=== PATIENT | female | born 1955 | race African-American/Black ===

== ENCOUNTER 2017-03-30 19:29 | Observation (INO) | payer BC, OTHER, SELFPAY ==
[~2017-03-30 19:29] MED LIST: ISOVUE-370 76%-LOCM 1 ML ONE
[2017-03-30 20:47] LABS: #Basophils 0.1 thou/uL (0.0-0.2); #Eosinphils 0.2 thou/uL (0.0-0.7); #Lymphocytes 2.1 thou/uL (1.20-3.40); #Monocytes 0.4 thou/uL (0.11-0.59); #Neutrophils 2.8 thou/uL (1.40-6.50); %Basophils 1.2 % (0.0-1.0); %Eosinophils 2.9 % (0.0-10.0); %Lymphocytes 37.4 % (21.0-51.0); %Monocytes 7.3 % (0.0-10.0); Hematocrit 44.5 % (36.0-47.0); Mean Platelet Volume 7.3 fL (7.4-10.4); Red Blood Cell (RBC) Count 4.86 mill/uL (4.20-5.40); White Blood Cell (WBC) Count 5.5 thou/uL (4.8-10.8)
--- NOTE | 2017-03-30 20:52 | RAD ---
PORTABLE CHEST: 03/30/17 HISTORY: Chest pain. Heart size is within normal limits for portable technique. There are atherosclerotic changes of the aorta. The lungs are clear. of infiltrative process. Some linear changes in the bases is consistent with atelectasis or scar. IMPRESSION: Minimal linear atelectasis or scar in the lung bases. POS: [facility]
[2017-03-30 21:10] LABS: ALT (SGPT) 16 U/L (8-55); AST (SGOT) 15 U/L (5-34); Alkaline Phosphatase 81 U/L (40-150); Anion Gap 11 mmol/L (10-20); BUN (Urea Nitrogen) 17 mg/dL (9.8-20.1); Bilirubin, Total 0.2 mg/dL (0.2-1.2); CK (CPK) 127 U/L (29-168); Calc. Creatinine Clearance 0 mL/min (70-130); Calcium 9.6 mg/dL (7.8-10.44); Carbon Dioxide 29 mmol/L (23-31); Chloride 104 mmol/L (98-107); Estimated GFR-MDRD Greater than 90; Globulin 3.1 g/dL (2.4-3.5); Lipase 20 U/L (8-78)
[2017-03-30 21:12] LABS: Troponin I Less than 0.010 ng/mL (< 0.028)
--- NOTE | 2017-03-30 21:49 | CT ---
CT ANGIO OF CHEST AND ABDOMEN PERFORMED WITH INTRAVENOUS CONTRAST ENHANCEMENT WITH 3D RECONSTRUCTION S: 03/30/17 HISTORY: Back and chest pain. This was done per the aortic dissection protocol. Lungs show emphysematous change. subsegmental atelectatic changes are seen in the lung bases. No ple ural effusions. No significant hilar lymphadenopathy. There is a slight enlarged prevascular node measuring 9 to 10 mm in short axis dimension. May be reactive. There is fairly good pulmonary artery opacification. I see no signs for pulmonary embolus. The thoracic aorta is normal in caliber. No dissection. CT ANGIO OF ABDOMEN PERFORMED WITH CONTRAST: The liver, spleen, pancreas, and gallbladder regions appear unremarkable on this angiographic phase exam. Right and left adrenal glands and right and left kidneys are normal in appearance. No significant pe riaortic or mesenteric adenopathy. The thoracic aorta is normal in caliber. Superior mesenteric and celiac arteries as well as inferior mesenteric arteries are normal in appearance. Single renal arter ies are noted. IMPRESSION: No evidence of aortic aneurysm or dissection. POS: [facility]
[2017-03-30] MEDS ORDERED: Ketorolac Tromethamine 30 MG/ML VIAL ONE (23:27)
[2017-03-30 23:59] LABS: Troponin I Less than 0.010 ng/mL (< 0.028)
[2017-03-31 00:19] VITALS: BMI 27.3
[2017-03-31 03:02] LABS: Troponin I Less than 0.010 ng/mL (< 0.028)
[2017-03-31] MEDS ORDERED: ADENOSINE 60 MG/20 ML VIAL ONE ×2 (03:29→15:12)
[2017-03-31] MEDS ORDERED: Acetaminophen 325 MG TAB PO PRN (06:35)
[2017-03-31] MEDS ORDERED: FLU VACC QS2017-18 36 mo. & older 0.5 ML SYRINGE IM ONE (09:00)
[2017-03-31] MEDS ORDERED: Amlodipine 10 MG TAB PO SCH (09:00)
[2017-03-31] MEDS ORDERED: Hydrochlorothiazide 25 MG TAB PO SCH (09:00)
[2017-03-31] MEDS ORDERED: Aspirin 325 MG TAB PO SCH (09:00)
[2017-03-31] MEDS ORDERED: ALPRAZolam 1 MG TAB PO SCH (09:00)
--- NOTE | 2017-03-31 13:31 | CON ---
DATE OF CONSULTATION: 03/31/2017 CARDIOLOGY CONSULTATION REASON FOR CONSULTATION: Chest pain. HISTORY OF PRESENT ILLNESS: Ms. Nicole is a 61-year-old -[place] female, who comes to the hospital for chest pain. She woke up and when she stood up a right-sided shoulder pain hit her. It radiated to the right scapula and to the right breast. She felt the pain would go to the left side every now and then she decided to come in for evaluation. She was admitted for rule out and has eddy d 3 negative troponins, continues to have pain mostly when she moves her right arm and it goes down to her right breast and right scapula. PAST MEDICAL HISTORY: 1. Hypertension. 2. Irritable bowel syndrome. 3. Anxiety, depression. PAST SURGICAL HISTORY: 1. Benign tumor removed from the breast. 2. Back surgery. SOCIAL HISTORY: She smokes half pack a day, drinks social. No drug use. OUTPATIENT MEDICATIONS: Include: 1. Xanax p.r.n. 2. Hydrochlorothiazide 12.5 mg a day. 3. Amlodipine 10 mg a day. ALLERGIES: HYDROCORTISONE. FAMILY HISTORY: Noncontributory. REVIEW OF SYSTEMS: A 12-point review of systems was done and is all negative unless stated in the h istory of present illness. PHYSICAL EXAMINATION: VITAL SIGNS: Temperature 97.8, pulse 78, respiratory rate 16, satting 98% on room air, blood pressu re 123/74. GENERAL: Awake, alert, oriented x3, in no distress. HEENT: Normocephalic, atraumatic. NECK: Supple. LUNGS: Clear. CARDIOVASCULAR: S1, S2, no S3 or S4, no murmurs or rubs. ABDOMEN: Soft, nondistended. EXTREMITIES: No edema. SKIN: Warm and dry. MUSCULOSKELETAL: She has significant pain in her right shoulder when moving it around, she may have rotator cuff tear. LABORATORY WORK: Shows negative troponins x3, unremarkable CBC and unremarkable metabolic profile. IMAGING: EKG shows sinus rhythm, no ischemic changes. Telemetry has shown some episodes of Mobitz type 1 AV block, at times it seems to be 2:1, but most likely it is Mobitz type 1 as the MT interval before the skip beat is longer than the MT interval after the skip beat. This also happened in the middle of night while she was sleeping and is completely asymptomatic. ASSESSMENT AND PLAN: 1. Second degree atrioventricular block, Mobitz type 1 and a few episodes of Mobitz type 2, which a re mostly Mobitz type 1 as well, this all during sleep and asymptomatic. She is in sinus rhythm dur ing the daytime and her complaint is not syncope. I do not think there is any indication for pacing at this time. 2. Chest pain: Most likely related to right shoulder pain. Because she did feel like there was a fullness in the mid sternal area before it all started on the shoulder, we will get an echocardiogra m and stress test to risk stratify her. 3. Hypertension: We will control. Thank you for letting us participate in the care of your patient. We will follow.
[2017-03-31 16:22] VITALS: BP 145/85; TEMP 98.5
--- NOTE | 2017-03-31 16:37 | NM ---
MYOCARDIAL PERFUSION SCAN WITH SPECT IMAGING: History: Chest pain. Examination was performed using 29.4 mCi Technetium 99M Sestamibi on the stress and resting images. FINDINGS: This shows a normal distribution of radiopharmaceutical without signs of ischemic or scar. Wall Motion: There is symmetric contractility. Left Ventricular Ejection Fraction: The LVEF is 72%. IMPRESSION: Unremarkable myocardial perfusion scan. POS: [facility]
--- NOTE | 2017-03-31 23:04 | HP ---
DATE OF ADMISSION: 03/31/2017 REASON FOR ADMISSION/CHIEF COMPLAINT: Chest pain. HISTORY OF PRESENT ILLNESS: Ms. Nicole is a 61-year-old female with a past medical history of hypertension, anxiety disorder, came with complaining of chest pain that started yesterday morning. Patient stated the pain was in the retrosternal area, sometimes radiates to the left shoulder and right shoulder associated with some shortness of breath, but no diaphoresis, no nausea or vomiting, no dizziness. Later on, the patient states the pain went to the back and to the right shoulder more and basically it hurts all over the chest. The patient came to the emergency room where she was evaluated and found to have normal EKG and cardiac enzymes. She is admitted to rule out myocardial infarction. PAST MEDICAL HISTORY: 1. Hypertension. 2. Anxiety disorder. PAST SURGICAL HISTORY: Nothing significant. CURRENT MEDICATIONS: The patient is on amlodipine 10 mg daily, hydrochlorothiazide 12.5 daily, and Xanax 1 mg b.i.d. FAMILY HISTORY: Nothing of interest. SOCIAL HISTORY: The patient lives with family. No history of smoking. No history of alcohol. REVIEW OF SYSTEMS: Unremarkable except for the chest tightness. PHYSICAL EXAMINATION: GENERAL: The patient is alert, awake, and oriented x3. VITAL SIGNS: Temperature 98, pulse 83, respirations 20, blood pressure 140/90. HEENT: Head is normocephalic, atraumatic. Pupils are equal and reactive. Nasopharynx is pale and dry. Hard and soft palate, no lesions seen. SKIN: Skin turgor decreased. NECK: Supple. No JVD. LUNGS: Bilateral air entry with no rales, no rhonchi. CARDIAC: S1, S2 regular. Chest wall, not tender. ABDOMEN: Soft, no distention, no tenderness. Normal bowel sounds. RECTAL: Deferred. CENTRAL NERVOUS SYSTEM: No focal deficits. LABORATORY AND X-RAY FINDINGS: CBC shows WBC of 5.5, hemoglobin 14, hematocrit 44, platelets 198. Metabolic panel: Sodium 140, potassium 3.9, chloride 104, CO2 24, urea nitrogen 17, creatinine 0.7, glucose 101. Chest x-ray negative. CT dissection negative. EKG shows normal sinus with no acute ST-T changes seen. ASSESSMENT: 1. Chest tightness, rule out myocardial infarction. 2. Hypertension. 3. Anxiety disorder. 4. Right shoulder pain. PLAN: 1. Vital signs q. 4 hours. 2. Activity: As tolerated. 3. Allergies: NKDA. 4. Diet: Cardiac. 5. Continue home medication. 6. CK-MB and troponin I q. 8 hours x2. 7. Cardiology consult. 8. Toradol p.r.n. MTDD
--- NOTE | 2017-04-01 14:02 | DIS ---
DATE OF ADMISSION: 03/31/2017 DATE OF DISCHARGE: 03/31/2017 ADMITTING DIAGNOSES: 1. Chest tightness, rule out myocardial infarction. 2. Hypertension. 3. Anxiety disorder. 4. Right shoulder pain. FINAL DIAGNOSES: 1. Chest tightness. No evidence of acute myocardial infarction. 2. Hypertension. 3. Anxiety disorder. BRIEF SUMMARY OF HOSPITAL COURSE: Ms. Nicole is a 61-year-old -[place] female with past me dical history of hypertension who came with chest pain and tightness. In view of risk factors, the patient was admitted to rule out myocardial infarction. The patient, after admission, she was found to have second degree AV block, Mobitz type 1. A cardiology consult was done. The patient was see n by Dr. Mayo. He felt the patient has Mobitz type 1 secondary to AV block and patient is asympto matic. So he suggested no pacing at this time. He suggested a stress test in view of her chest blanca n. Stress test was done and it was negative for ischemia. The patient had some shoulder pain, but otherwise chest pain resolved. In view of improvement, the patient was discharged. At the time of discharge, she was stable. Her vital signs were stable. Lungs clear. Heart sound r egular. Abdomen: Soft, nontender. Bowel sounds present. DISCHARGE MEDICATIONS: Include amlodipine 10 mg daily, hydrochlorothiazide 12.5 mg daily, Xanax 1 m g b.i.d. FOLLOWUP: The patient will come for followup in 2 weeks.
== END 2017-03-31 17:18 | disposition home or self-care (01) ==
LOC: ERS 19:29 → 2SW 03-31 00:01
PROVIDERS: ADMIT Internal Medicine; ATTEND Internal Medicine
DX: R07.89 Other chest pain (principal); I10 Essential (primary) hypertension; F41.9 Anxiety disorder, unspecified; M25.511 Pain in right shoulder; K58.9 Irritable bowel syndrome, unspecified; F17.210 Nicotine dependence, cigarettes, uncomplicated; Z88.5 Allergy status to narcotic agent; Z88.6 Allergy status to analgesic agent; Z79.899 Other long term (current) drug therapy; Z98.890 Other specified postprocedural states
CPT/HCPCS: 36415; 71010; 71275; 78452; 80053; 82553; 83690; 84484; 85025; 90471; 90682; 90732; 93005; 93017; 96374; A4216; A9500; G0008; G0009; G0378; J0153; J1885; Q2036

== ENCOUNTER 2018-03-07 20:05 | Observation (INO) | payer BC, OTHER, SELFPAY ==
[2018-03-07] MEDS ORDERED: Acetaminophen 500 MG TAB ONE (21:06)
[2018-03-07] MEDS ORDERED: Ketorolac Tromethamine 30 MG/ML VIAL ONE (21:07)
[2018-03-07 21:20] LABS: #Basophils 0.1 thou/uL (0.0-0.2); #Eosinphils 0.1 thou/uL (0.0-0.7); #Lymphocytes 2.5 thou/uL (1.20-3.40); #Monocytes 0.4 thou/uL (0.11-0.59); #Neutrophils 4.2 thou/uL (1.40-6.50); %Basophils 1.6 % (0.0-1.0); %Eosinophils 1.9 % (0.0-10.0); %Lymphocytes 34.7 % (21.0-51.0); %Monocytes 4.8 % (0.0-10.0); %Neutrophils 57.1 % (42.0-75.0); Mean Corpuscular HGB CONC 31.9 g/dL (32.0-36.0); Mean Corpuscular Volume 90.8 fL (78.0-98.0); Mean Platelet Volume 7.9 fL (7.4-10.4); Platelet Count 202 thou/uL (130-400); Red Blood Cell (RBC) Count 4.83 mill/uL (4.20-5.40); White Blood Cell (WBC) Count 7.3 thou/uL (4.8-10.8)
[2018-03-07 21:42] LABS: Acetaminophen Less than 6.0 mcg/mL (10.0-30.0); Alcohol 183 mg/dL (Less than 10); Anion Gap 14 mmol/L (10-20); BUN (Urea Nitrogen) 15 mg/dL (9.8-20.1); Calc. Creatinine Clearance 0 mL/min (70-130); Calcium 9.4 mg/dL (7.8-10.44); Carbon Dioxide 23 mmol/L (23-31); Chloride 98 mmol/L (98-107); Estimated GFR-MDRD 81; Glucose 108 mg/dL (80-115); Potassium 3.3 mmol/L (3.5-5.1); Salicylate Less than 8.0 mg/dL (15.0-30.0); Sodium 132 mmol/L (136-145)
[2018-03-07 21:49] LABS: Amphetamine Not Detected (NotDetected); Barbiturates Screen Not Detected (NotDetected); Benzodiazepine Screen Detected (NotDetected); Cocaine Metabolite Screen Not Detected (NotDetected); Medtox Control Line Valid? VALID (VALID); Medtox Reader # READER 1; Methadone Not Detected (NotDetected); Methamphetamine Not Detected (NotDetected); Opiate Screen Not Detected (NotDetected); Oxycodone Screen Not Detected (NotDetected); Phencyclidine (PCP) Not Detected (NotDetected); THC/Cannabinoid Screen Not Detected (NotDetected); Tricyclic Screen Not Detected (NotDetected)
--- NOTE | 2018-03-07 22:56 | CT ---
CT BRAIN NONCONTRAST: 03/07/18 HISTORY: 62-year-old female status post acute head trauma from fall. FINDINGS: There is no midline shift or any other mass effect. There is no evidence of acute intracranial hemor rhage, large cortical infarct, obstructive hydrocephalus, or extraaxial fluid collection. The calvar ium is intact. There is a frontal scalp hematoma centered to the right of midline. There are small bu bbles of gas within the upper portion of it indicating laceration. IMPRESSION: 1. No acute intracranial findings. 2. Acute, traumatic, frontal scalp hematoma and laceration. jn [] POS: [facility]
--- NOTE | 2018-03-07 23:14 | CT ---
CT CERVICAL SPINE NONCONTRAST: 03/07/18 at 10:39 p.m. HISTORY: 62-year-old female with acute traumatic cervicalgia from fall. FINDINGS: Vertebral body heights are maintained. There are no jumped or perched facets. No fracture is identifi ed from the craniocervical junction to the T3-4 level of the upper thoracic spine. There is fat stran ding and fluid density anterior to the upper thoracic spine, between the vertebral bodies are the eso phagus, and to the right and left of them. There is adjacent edema. The origin of this is uncertain. There is a different, thin layer of fluid in the retropharyngeal space anterior to the cervical spine , from approximately the C2-3 level to the C5 level. The etiology of this is probably calcific tendin itis of the longus colli muscle, evidenced by the presence of a small calcific density directly infer ior to the junction between the odontoid process and the anterior arch of C1. There is high grade degenerative disc disease at C5-6 and C6-7. There is high grade degenerative face t disease at multiple levels bilaterally. IMPRESSION: 1. No fracture identified. 2. Fluid, which may represent hemorrhage and/or edema, in the retroesophageal space anterior to the upper thoracic spine, of unknown etiology. In the setting of trauma, one possibility is tear of t he anterior longitudinal ligament in that location, but this is uncertain. 3. Fluid in the retropharyngeal space anterior to the cervical spine is due to calcific tendinit is of the longus colli muscle. 4. Cervical spondylosis. NUNO Small POS: [facility]
[2018-03-08] MEDS ORDERED: Ondansetron ODT 4 MG TAB PO PRN (04:01)
[2018-03-08] MEDS ORDERED: Dextrose 50% Abboject 50 ML SYRINGE SLOW IVP PRN (04:01)
[2018-03-08] MEDS ORDERED: Dextrose 5% in Water 1,000 ML IV PRN (04:01)
[2018-03-08] MEDS ORDERED: Ondansetron HCl/PF 4 MG/2 ML Vial IVP PRN (04:01)
[2018-03-08] MEDS ORDERED: traMADol HCl 50 MG TAB PO PRN (04:09)
[2018-03-08] MEDS ORDERED: Acetaminophen 500 MG TAB PO SCH ×2 (04:15→12:00)
[2018-03-08] MEDS ORDERED: traMADol HCl 50 MG TAB PO SCH ×2 (04:30→12:00)
[2018-03-08] MEDS ORDERED: Potassium Chloride 20 MEQ in Premix Bag 1 BAG IVPB SCH (04:30)
[2018-03-08] MEDS ORDERED: Ibuprofen 600 MG TAB PO SCH ×2 (04:30→14:00)
[2018-03-08 05:21] VITALS: BMI 26.4
[2018-03-08] MEDS ORDERED: Lorazepam 2 MG/ML VIAL ONE (06:04)
--- NOTE | 2018-03-08 06:04 | HP ---
DATE OF ADMISSION: 03/08/2018 ATTENDING PHYSICIAN: Dr. Meadows. TRAUMA ACTIVATION: Not applicable. HISTORY OF PRESENT ILLNESS: This is a 62-year-old female who presented to [facility] status post fall with a chief complaint of neck pain. She was seen and evaluated in the emergency ro om and found to have ligamentous C-spine injury, multiple levels with evidence of cord edema. Neuros urgery was notified and originally recommended that patient to be discharged home with a C-collar and outpatient followup. However, patient was intoxicated upon arrival and there were concerns for lilia ent's safety being discharged home as she lives alone. Trauma Services was asked to admit for observ ation and pain control. Upon my evaluation, the patient has a chief complaint of frontal headache an d mild C-spine pain. ALLERGIES: HYDROCORTISONE and HYDROCODONE. PAST MEDICAL HISTORY: Significant for hypertension. HOME MEDICATIONS: Include amlodipine 10 p.o. daily, hydrochlorothiazide 12.5 p.o. daily, Xanax 1 mg b.i.d. PAST SURGICAL HISTORY: Lipoma removal, hysterectomy, appendix, and breast lumpectomy. SOCIAL HISTORY: The patient lives alone. Endorses occasional alcohol use. She is a current smoker, half pack per day. Denies illicit drug use. FAMILY HISTORY: Significant for a brother with diabetes. Sister with diabetes. Mother with hyperte nsion and another sister with hypertension. REVIEW OF SYSTEMS: Ten-point review of systems is performed and negative except as indicated in the HPI. PHYSICAL EXAMINATION: VITAL SIGNS: Temperature 98.3, respirations 18, O2 sat 98% on room air, blood pressure 118/79, pulse 102. GENERAL: Resting in bed in no acute distress. HEAD: There is a left frontal contusion. EYES: Pupils are PERRL. Extraocular movements are intact. NECK: Supple. Trachea is midline. C-collar is in place. CHEST: Atraumatic, nontender to palpation. Normal work of breathing. Symmetric rise. CARDIOVASCULAR: Regular rate and rhythm. GASTROINTESTINAL: Abdomen is soft, nontender, nondistended. MUSCULOSKELETAL: Moves all extremities x4. NEUROLOGIC: No focal deficit is noted. She has 5/5 strength in all 4 extremities and no sensory def icit. LABORATORY FINDINGS: WBC 7.3, hemoglobin 14.0, hematocrit 42.9, platelet count 202,000. Sodium 132, potassium 3.3, chloride 98, carbon dioxide 23, BUN 15, creatinine 0.86. Blood alcohol 183. Drug sc reen positive for benzodiazepines. RADIOGRAPHIC FINDINGS: CT of the brain was negative for acute intracranial abnormality, but did show evidence of a frontal scalp hematoma. CT of the C-spine was significant for evidence of fluid and e ashwini in the retroesophageal space anterior to the upper thoracic spine. MRI of the C-spine demonstra casa edema of C6 and C7 with moderate C6 and mild C7 superior endplate irregularities. There was evid ence of cord edema from C2-C7 and disruption of the ligamentum flavum at the level of C5 with possibl e disruption of the anterior longitudinal ligament at the level of C5 and C6 as well as interspinous ligament edema from C2-C3 and C6-C7 with evidence of interspinous ligamentous injury and prevertebral soft tissue swelling as well as posterior paraspinal muscle edema. CT of the T-spine showed edema i n the vertebral bodies, T5 and T6 with some kyphosis. ASSESSMENT: 1. Status post mechanical fall. 2. Acute traumatic pain. 3. Frontal contusion. 4. C-spine ligamentous injury with possible C6-C7 and superior endplate fractures associated with co rd edema. PLAN: Admit to trauma services for pain control and observation. The patient should work with physi alix therapy. C-collar at all times. Plan for admission was discussed with the patient at bedside an d all questions were answered at the time of this dictation. The patient was discussed with Neurosanali stone, they will see and evaluate the patient later this morning. Trauma attending has been notified of admission.
--- NOTE | 2018-03-08 08:51 | MRI ---
PRELIMINARY REPORT/[facility]/EMERGENTY AFTER-HOURS PROCEDURE MR Thoracic Spine Without Intravenous Contrast CLINICAL HISTORY: 62 years old, female; Injury or trauma; Fall; Initial encounter; Abrasion and sprain or strain; Injur y details: Vy presents to ed C/O falling and hitting her head while trying to go up the stairs. Pt s tates that she has pain in her head, leg, and neck. Denies: Loc, any numbness or tingling in any of h er extremities, or being on any blood thinners. Pmhx: Anxiety and depression TECHNIQUE: Magnetic resonance images of the thoracic spine without intravenous contrast in multiple planes. COMPARISON: No relevant prior studies available. FINDINGS: Vertebrae: Edema in the vertebral bodies of T5 and T6 anteriorly with mild kyphosis. Discs/spinal canal/neural foramina: No significant spinal canal stenosis. Spinal cord: Unremarkable. Normal signal. Soft tissues: Prevertebral edema in the visualized lower cervical and upper thoracic spine. IMPRESSION: Edema in the vertebral bodies of T5 and T6 anteriorly with mild kyphosis. Recommend dedicated thoraci c spine CT for further evaluation. THIS REPORT CONTAINS FINDINGS THAT MAY BE CRITICAL TO PATIENT CARE. The findings were verbally commun icated via telephone conference with DANDRE LOCK MD at 3:13 AM CDT on 03/08/2018. The findings w ere acknowledged and understood. Initial Report created on 03/08/2018 2:52 AM Central Time ([place] & [place]) MR Cervical Spine Without Intravenous Contrast TECHNIQUE: Magnetic resonance images of the cervical spine without intravenous contrast in multiple planes. COMPARISON: No relevant prior studies available. FINDINGS: Vertebrae: Edema of C6 and C7 vertebral bodies with moderate C6 and mild C7 superior end plate irregu larities. Spinal cord: Mild enlargement of the cervical cord from C2-C7 junction compared to the visualized upp er thoracic cord. Soft tissues: Prevertebral soft tissue swelling present from C2 through the visualized upper thoracic vertebra. Posterior paraspinal musculature edema from C3-C7. Interspinous ligament edema from C2/C3- C6/C7. Disruption of the ligamentum flavum at the level of C5 seen in image 9 series 5 and series 3. There appears to be discontinuity of the anterior longitudinal ligament at the level of C5 and C6 image 9 series 3. Vasculature: Unremarkable. Normal vertebral artery flow voids are visualized. Other findings: Craniocervical junction is normal. DISCS/SPINAL CANAL/NEURAL FORAMINA: C2-C3 thru C7-T1: No significant spinal canal stenosis. IMPRESSION: 1. Edema of C6 and C7 vertebral bodies with moderate C6 and mild C7 superior end plate irregularities most suspicious for acute fractures. Recommend CT cervical spine for further evaluation. 2. Mild enlargement of the cervical cord from C2-C7 compared to the visualized upper thoracic cord gonzalez spicious for cord edema given the associated injuries. 3. Disruption of the ligamentum flavum at the level of C5 and possible disruption of the anterior caitlin gitudinal ligament at the level of C5 and C6 as described above. 4. Interspinous ligament edema from C2/C3-C6/C7 consistent with interspinous ligament injury. 5. Prevertebral soft tissue swelling and posterior paraspinal musculature edema as described above. Thank you for allowing us to participate in the care of your patient. Dictated and Authenticated by: Bernardino Biswas MD 03/08/2018 2:52 AM Central Time ([place] & [place]) Final report by Dr. Josue Emergency after hours study MRI CERVICAL SPINE NONCONTRAST MRI THORACIC SPINE NONCONTRAST: DATE: 03-08-18 TIME: 1:32 a.m. History: 62-year-old female with traumatic pain in the upper thoracic spine and cervical spine. Comparison: No prior MRIs of the cervical spine or thoracic spine. FINDINGS: Cervical and thoracic spinal cord are normal in size and signal down to T12-L1 level. The conus medul layne terminates inferior to the T12-L1 level, which is not included on the images. The cervical and thoracic vertebral body heights are maintained. No severe central spinal canal stenosis at any level. There is neuroforaminal stenosis at several levels in the cervical spine, of varying degrees. There is T2-hyperintense fluid in the retropharyngeal space from upper C2 down to C6-7. This continue s inferior to that, from C7 through approximately T3-4. There is soft tissue edema in the interspinous ligament region between the spinous processes of C4, C 5, and C6, consistent with tear of the interspinous ligament. Posterior to the spinous processes, the re is fluid in the soft tissues. (These findings are all demonstrated on the STIR sagittal sequence). There is also bone marrow edema in a patchy manner involving the majority of the body of C6 vertebral body, and superior portions of C7 vertebral body. It is uncertain whether these represent acute trau matic osseous contusions or represent Modic type I marrow changes due to the high grade degenerative disc disease at C5-6 and C6-7. There is also bone marrow edema between the endplates at the right posterior aspect of T2-3. There ar e smaller regions of bone marrow edema involving the anterior inferior corner of T5 vertebral body, a nterior portion of T6 vertebral body, and anterior superior corner of T7 vertebral body. There is darren ma in the prevertebral space anterior to these. There is no cord impingement. IMPRESSION: 1. Evidence for tear of the cervical interspinous ligament at the midcervical spine, plus bone contus ions of the spinous processes. 2. Fluid in the retroesophageal, prevertebral space anterior to the upper and mid-thoracic spine. In the setting of trauma, this is suggestive of tear of the anterior longitudinal ligament. 3. Fluid in the retropharyngeal space. Although the CT findings are typical for calcific tendinitis o f longus coli, it is possible that this represents tear of the anterior longitudinal ligament in the cervical spine as well, given the presence of the other findings. 4. Bone marrow edema at several levels in the mid cervical spine, and mid and upper thoracic spine. I t is uncertain whether these represent acute traumatic bone contusions or Modic type I marrow changes , or a combination of both. 5. No injury of the spinal cord. The final report was dictated prior to receipt of the preliminary report by Shelley. There is agreement between this final report and the preliminary report. Code QA POS: [facility]
--- NOTE | 2018-03-08 10:26 | CON-2 ---
DATE OF CONSULTATION: 03/08/2018 ATTENDING PHYSICIAN: Dr. Pascual Lombardi. HISTORY OF PRESENT ILLNESS: Ms. Nicole is a 62-year-old -[place] female with a past medical history of hypertension who presented to the emergency department last night with complaint of neck pain following mechanical fall. The patient was also found to have ETOH intoxication at that time. She underwent a CT of the cervical spine which was concerning for ligamentous injury. Therefore, I recommended further evaluation with MRI. MRI of the cervical spine was done which showed ALL ligamentous injury at C5 and C6 as well as of the ligamentum flavum at C5 and interspinous ligamentous edema from C2-C3 and C6-C7 with posterior paraspinal muscle edema. The patient also was found to have some mild compression deformities at C6-C7. No cord edema appreciated on my review of the images. The patient was admitted to the Trauma Service for pain control and mobilization. She is currently wearing an [place] collar on my exam, but appears to have a poor fit. She is only complaining of neck pain. She denies any radicular symptoms, numbness, tingling or weakness. PAST MEDICAL HISTORY: Hypertension. PAST SURGICAL HISTORY: Hysterectomy, appendectomy, breast lumpectomy, lipoma removal. ALLERGIES: She is allergic to HYDROCODONE, HYDROCORTISONE. CURRENT MEDICATIONS: Amlodipine 10 mg tab 1 tab p.o. daily, hydrochlorothiazide 12.5 mg tab 1 tab p.o. daily, Xanax 1 mg tab 1 tab p.o. b.i.d. p.r.n. FAMILY HISTORY: Noncontributory. SOCIAL HISTORY: Patient lives at home alone. She drinks socially. She is a half a day smoker. She does not use any drugs. REVIEW OF SYSTEMS: Per HPI. PHYSICAL EXAMINATION: VITAL SIGNS: Temperature is 98.9, pulse is 93, respiration rate is 20, she is 97% on room air, BP is 114/77. CONSTITUTIONAL: Patient is awake, alert, no acute distress. She reports minimal pain while lying reclined but does report some neck discomfort when standing. HEAD: There is a contusion to the right frontal region with overlying abrasion. EYES: Pupils are equal and reactive to light. Extraocular movements intact. ENT: Oral mucosa is pink, intact, and moist. She has normal voice. NECK: She is currently wearing an [place] collar, but appears to be fitting her poorly. CARDIOVASCULAR: Regular rate and rhythm. LUNGS: She is breathing comfortably with symmetric chest expansion. No evidence of dyspnea. MUSCULOSKELETAL: She has free active range of all extremities. No focal motor weakness, no reflex asymmetry. She has normal reflexive. Negative Simental's, negative clonus. A and O x4. No focal neurologic deficits are appreciated. ASSESSMENT AND PLAN: The patient appears to have a significant ligamentous injury as well as mild compression fractures at C6-C7 following a mechanical fall. No cord edema appreciated on my or Dr. Frost review of the MRI. I do not anticipate any acute neurosurgical intervention at this time; however, the patient should wear the cervical collar at all times. At this time, the [place] collar appears to be fitting her poorly and I have changed it to a [place] J. She reports this collar is much more comfortable. We will continue to work on pain control and mobilization. I have discussed this plan with Dr. Lombardi who will see, patient is in agreement. Please reach out to Neurosurgery for additional questions or concerns. SILAS
--- NOTE | 2018-03-08 14:20 | PRG ---
DATE OF SERVICE: 03/08/2018 SURGEON: Pascual Lombardi M.D. SUBJECTIVE: I am seeing Ms. Nicole regarding cervical ligamentous injury. The patient was seen and examined and I agree with Jacy Shah's evaluation 03/07. The patient is a 62-year-old woman who fell down stairs while intoxicated overnight. She has significant neck pain, but no other neurologic complaints or findings. I have reviewed all of her imaging. I could not define any definitive bony abnormality from the trauma nor is there any abnormality of the spinal cord as best I can tell from the MRI. There does seem to be fairly extensive ligamentous damage posteriorly without change in ali gnment, but some loss of lordosis. IMPRESSION AND PLAN: Significant cervical ligamentous injury. Treatment with cervical collar for 6- 8 weeks. She can be discharged with pain medication and strict cervical collar immobilization and I discussed this with her. We will plan to arrange a followup in 4 weeks with x-rays.
[2018-03-08 16:02] VITALS: BP 162/95; TEMP 99.1
--- NOTE | 2018-03-08 19:01 | DIS ---
DATE OF ADMISSION: 03/08/2018 DATE OF DISCHARGE: 03/08/2018. ADMISSION DIAGNOSES: 1. Status post mechanical fall. 2. Cervical spine ligamentous injury. 3. Acute traumatic pain. 4. Acute alcohol intoxication. 5. Frontal contusion. DISCHARGE DIAGNOSES: 1. Status post mechanical fall. 2. Cervical spine ligamentous injury. 3. Acute traumatic pain. 4. Acute alcohol intoxication. 5. Frontal contusion. CONSULTANTS: Dr. Lombardi, Neurosurgery. PROCEDURES: None. HOSPITAL COURSE: Amalia Nicole is a 62-year-old female who presented to [facility] status post mec hanical fall with a chief complaint of neck pain. She was seen and evaluated in the emergency room a nd found to have the above injuries. Given her acute intoxicated state and the fact that the patient lives at home alone with persistent neck pain, Trauma Services was asked to admit for pain control a nd observation. Neurosurgery saw and evaluated the patient and recommended C-collar at all times wit h [place] collar for showers. The patient had the opportunity to work with physical therapy. P ain was controlled via p.o. analgesics and she was deemed medically stable for discharge on the after noon 03/08/2018. DISCHARGE DISPOSITION: Home. DISCHARGE CONDITION: Good. PHYSICAL EXAMINATION: VITAL SIGNS: Temperature 98.9, pulse 84, respirations 16, O2 sat 96% on room air, blood pressure 137 /82. GENERAL: Elderly appearing female in no acute distress, resting in bed. PULMONARY: Normal work of breathing, symmetric rise. CARDIOVASCULAR: Regular rate and rhythm. NECK: [place] J collar in place. GASTROINTESTINAL: Abdomen is soft, nontender, nondistended. MUSCULOSKELETAL: Moves all extremities x4. NEUROLOGIC: No sensory or motor deficit noted. No focal deficit noted. GCS is 15. DISCHARGE INSTRUCTIONS: Discharge instructions were provided to the patient who vocalized her unders tanding. She is to wear her C-collar at all times with a [place] collar for showers. She shoul d not do any heavy lifting or bending as this may exacerbate her neck pain and discomfort. DISCHARGE MEDICATIONS: The patient was discharged home with instructions to resume her home medicati ons. Additionally, she was provided prescription for ibuprofen 600 mg q.8 hours, Pepcid 20 mg p.o. b .i.d., Ultram 50 mg q.6 hours p.r.n. for severe breakthrough pain only, #30. FOLLOWUP APPOINTMENTS: The patient should follow up with Neurosurgery in approximately 4 weeks. She has been provided Dr. Lombardi's number to arrange for followup appointment. She does not need to f ollow up with Trauma Services formally, but may call our office with any questions. She should follo w up with her primary care provider pnate. This is merely a summary of the patient's hospitalization. For more in depth information, please see her medical record in its entirety.
[2018-03-09] MEDS ORDERED: Hydrochlorothiazide 25 MG TAB PO SCH (09:00)
[2018-03-09] MEDS ORDERED: Amlodipine 10 MG TAB PO SCH (09:00)
== END 2018-03-08 16:54 | disposition home or self-care (01) ==
LOC: ERS 20:05 → SURG B 03-08 04:01
PROVIDERS: ADMIT Surgery; ATTEND Surgery
DX: S19.80XA Other specified injuries of unspecified part of neck, initial encounter (principal); M54.2 Cervicalgia; S00.83XA Contusion of other part of head, initial encounter; F17.210 Nicotine dependence, cigarettes, uncomplicated; G89.11 Acute pain due to trauma; I10 Essential (primary) hypertension; F10.120 Alcohol abuse with intoxication, uncomplicated; Z79.899 Other long term (current) drug therapy; Z88.5 Allergy status to narcotic agent; Z88.8 Allergy status to other drugs, medicaments and biological substances; W10.9XXA Fall (on) (from) unspecified stairs and steps, initial encounter
CPT/HCPCS: 36415; 70450; 72125; 72141; 72146; 80048; 80306; 80307; 85025; 96365; 96366; 96372; 96374; 96375; G0378; G0390; G8978-GP-CK; G8979-GP-CK; G8980-GP-CK; J1885; J2060; J3480; Q0162

== ENCOUNTER 2018-03-22 11:09 | Emergency (ER) | payer SELFPAY | END 2018-03-22 13:56 | disposition home or self-care (01) | LOC: ERS 11:09 | DX: L25.9 Unspecified contact dermatitis, unspecified cause (principal); Z71.6 Tobacco abuse counseling; F17.210 Nicotine dependence, cigarettes, uncomplicated; I10 Essential (primary) hypertension; E78.00 Pure hypercholesterolemia, unspecified; F41.9 Anxiety disorder, unspecified; Z79.899 Other long term (current) drug therapy | CPT/HCPCS: 99406 ==

== ENCOUNTER 2018-11-04 18:12 | Emergency (ER) | payer SELFPAY ==
[2018-11-04 19:25] LABS: #Basophils 0.1 thou/uL (0.0-0.2); #Eosinphils 0.1 thou/uL (0.0-0.7); #Lymphocytes 2.3 thou/uL (1.20-3.40); #Monocytes 0.5 thou/uL (0.11-0.59); %Basophils 1.7 % (0.0-1.0); %Eosinophils 2.4 % (0.0-10.0); %Lymphocytes 37.4 % (21.0-51.0); %Monocytes 8.7 % (0.0-10.0); %Neutrophils 49.9 % (42.0-75.0); Hemoglobin 15.1 g/dL (12.0-16.0); Mean Corpuscular HGB CONC 31.7 g/dL (32.0-36.0); Mean Corpuscular Hemoglobin 28.9 pg (27.0-31.0); Mean Corpuscular Volume 91.3 fL (78.0-98.0); Mean Platelet Volume 7.9 fL (7.4-10.4); Platelet Count 225 thou/uL (130-400); RBC Distribution Width 14.7 % (11.5-14.5)
[2018-11-04 19:40] LABS: Acetaminophen Less than 6.0 mcg/mL (10.0-30.0); Alcohol Less than 10 mg/dL (Less than 10); Salicylate Less than 8.0 mg/dL (15.0-30.0)
[2018-11-04 19:42] LABS: ALT (SGPT) 14 U/L (8-55); AST (SGOT) 16 U/L (5-34); Albumin 4.3 g/dL (3.4-4.8); Alkaline Phosphatase 87 U/L (40-150); Anion Gap 14 mmol/L (10-20); BUN (Urea Nitrogen) 11 mg/dL (9.8-20.1); Bilirubin, Total 0.2 mg/dL (0.2-1.2); Calc. Creatinine Clearance 0 mL/min (70-130); Calcium 10.4 mg/dL (7.8-10.44); Carbon Dioxide 26 mmol/L (23-31); Chloride 103 mmol/L (98-107); Estimated GFR-MDRD Greater than 90; Globulin 3.4 g/dL (2.4-3.5); Glucose 96 mg/dL (80-115); Potassium 3.8 mmol/L (3.5-5.1); Protein, Total 7.7 g/dL (6.0-8.3); Sodium 139 mmol/L (136-145)
[2018-11-04] MEDS ORDERED: Lorazepam 1 MG TAB ONE (21:10)
== END 2018-11-04 21:24 | disposition home or self-care (01) ==
LOC: ERS 18:12
DX: F41.9 Anxiety disorder, unspecified (principal); E78.00 Pure hypercholesterolemia, unspecified; I10 Essential (primary) hypertension; K58.9 Irritable bowel syndrome, unspecified; F32.9 Major depressive disorder, single episode, unspecified; Z79.899 Other long term (current) drug therapy; F17.210 Nicotine dependence, cigarettes, uncomplicated
CPT/HCPCS: 36415; 80053; 80307; 84443; 85025; 93005

== ENCOUNTER 2018-11-09 11:59 | Emergency (ER) | payer SELFPAY ==
[2018-11-09] MEDS ORDERED: Ondansetron PF 4 MG/2 ML Vial ONE (12:27)
[2018-11-09 12:57] LABS: Bilirubin Negative (Negative); Blood, Urine Negative (Negative); Clarity CLEAR (Clear); Glucose, Urine (Dipstick) Negative (Negative); Leukocyte Negative (Negative); Nitrite Negative (Negative); Protein, Urine (Dipstick) Negative (Neg-Trace); Specific Gravity, Urine 1.005 (1.002-1.036); Urobilinogen 0.2 mg/dL (0.2-1.0)
[2018-11-09 13:04] LABS: ALT (SGPT) 14 U/L (8-55); AST (SGOT) 13 U/L (5-34); Albumin 4.4 g/dL (3.4-4.8); Alkaline Phosphatase 80 U/L (40-150); Anion Gap 12 mmol/L (10-20); BUN (Urea Nitrogen) 7 mg/dL (9.8-20.1); Bilirubin, Total 0.4 mg/dL (0.2-1.2); Calc. Creatinine Clearance 0 mL/min (70-130); Calcium 10.1 mg/dL (7.8-10.44); Carbon Dioxide 29 mmol/L (23-31); Chloride 103 mmol/L (98-107); Estimated GFR-MDRD Greater than 90; Globulin 2.8 g/dL (2.4-3.5); Glucose 112 mg/dL (80-115); Hemoglobin 14.7 g/dL (12.0-16.0); Mean Corpuscular HGB CONC 32.6 g/dL (32.0-36.0); Mean Corpuscular Hemoglobin 29.2 pg (27.0-31.0); Mean Corpuscular Volume 89.6 fL (78.0-98.0); Mean Platelet Volume 8.2 fL (7.4-10.4); Platelet Count 222 thou/uL (130-400); Potassium 3.6 mmol/L (3.5-5.1); Protein, Total 7.2 g/dL (6.0-8.3); RBC Distribution Width 14.2 % (11.5-14.5); Red Blood Cell (RBC) Count 5.03 mill/uL (4.20-5.40); Sodium 140 mmol/L (136-145)
[2018-11-09 13:18] LABS: Eosinophils 2 % (0-10); Lymphocytes 22 % (21-51); MDiff Complete? YES; Monocytes 9 % (0-10); Neutrophil 52 % (42-75); Platelet Morphology Comment Appears Adequate; Reactive Lymphocytes 14 % (0-10); White Blood Cell (WBC) Count 5.2 thou/uL (4.8-10.8)
[2018-11-09] MEDS ORDERED: Meclizine HCl 25 MG TAB ONE (13:46)
== END 2018-11-09 14:09 | disposition home or self-care (01) ==
LOC: ERS 11:59
DX: R42 Dizziness and giddiness (principal); I10 Essential (primary) hypertension; E78.00 Pure hypercholesterolemia, unspecified; F41.9 Anxiety disorder, unspecified; Z79.899 Other long term (current) drug therapy
CPT/HCPCS: 12011; 36415; 80053; 81003; 84484; 85025; 93005; J2405; J8499

== ENCOUNTER 2018-11-11 10:06 | Observation (INO) | payer SELFPAY ==
--- NOTE | 2018-11-11 10:45 | CT ---
Exam: Head CT without contrast HISTORY: Dizziness. COMPARISON: none FINDINGS: Hemorrhage: No intraparenchymal hemorrhage or extra-axial hematoma. Brain parenchyma: Cortical manzano-white matter differentiation is preserved. No mass effect or midline shift. Basilar cisterns are patent. Ventricular system: Ventricles and sulci are patent and symmetric. Calvarium: Intact. Sinuses and mastoid air cells: Adequate aeration. IMPRESSION: No acute intracranial process.
[2018-11-11] MEDS ORDERED: Ondansetron PF 4 MG/2 ML Vial ONE (10:53)
[2018-11-11 11:30] LABS: Hemoglobin 15.2 g/dL (12.0-16.0); Mean Corpuscular Hemoglobin 28.1 pg (27.0-31.0); Mean Corpuscular Volume 90.8 fL (78.0-98.0); Mean Platelet Volume 8.2 fL (7.4-10.4); Platelet Count 217 thou/uL (130-400); RBC Distribution Width 14.4 % (11.5-14.5); White Blood Cell (WBC) Count 5.3 thou/uL (4.8-10.8)
[2018-11-11 11:35] LABS: #Eosinphils 0.1 thou/uL (0.0-0.7); #Lymphocytes 2.4 thou/uL (1.20-3.40); #Monocytes 0.6 thou/uL (0.11-0.59); #Neutrophils 2.2 thou/uL (1.40-6.50); %Basophils 0.7 % (0.0-1.0); %Eosinophils 1.3 % (0.0-10.0); %Lymphocytes 45.5 % (21.0-51.0); %Monocytes 10.6 % (0.0-10.0); %Neutrophils 41.9 % (42.0-75.0); Lymphocytes 46 % (21-51); MDiff Complete? YES; Monocytes 8 % (0-10); Neutrophil 40 % (42-75); RBC Morphology Normal; Reactive Lymphocytes 4 % (0-10)
[2018-11-11 11:37] LABS: ALT (SGPT) 14 U/L (8-55); AST (SGOT) 15 U/L (5-34); Albumin 4.4 g/dL (3.4-4.8); Alkaline Phosphatase 80 U/L (40-150); Anion Gap 13 mmol/L (10-20); BUN (Urea Nitrogen) 11 mg/dL (9.8-20.1); Bilirubin, Total 0.5 mg/dL (0.2-1.2); Calc. Creatinine Clearance 0 mL/min (70-130); Calcium 10.6 mg/dL (7.8-10.44); Carbon Dioxide 27 mmol/L (23-31); Chloride 104 mmol/L (98-107); Estimated GFR-MDRD Greater than 90; Globulin 2.9 g/dL (2.4-3.5); Glucose 87 mg/dL (80-115); Potassium 3.8 mmol/L (3.5-5.1); Protein, Total 7.3 g/dL (6.0-8.3); Sodium 140 mmol/L (136-145)
[2018-11-11 12:26] LABS: Bilirubin Negative (Negative); Blood, Urine Negative (Negative); Clarity CLEAR (Clear); Glucose, Urine (Dipstick) Negative (Negative); Leukocyte Negative (Negative); Nitrite Negative (Negative); Protein, Urine (Dipstick) Negative (Neg-Trace); Specific Gravity, Urine 1.015 (1.002-1.036); pH, Urine 6.5 (5.0-9.0)
[2018-11-11 12:40] LABS: Amphetamine Not Detected (NotDetected); Barbiturates Screen Not Detected (NotDetected); Benzodiazepine Screen Not Detected (NotDetected); Cocaine Metabolite Screen Not Detected (NotDetected); Medtox Control Line Valid? VALID (VALID); Medtox Reader # READER 4; Methadone Not Detected (NotDetected); Methamphetamine Not Detected (NotDetected); Opiate Screen Not Detected (NotDetected); Oxycodone Screen Not Detected (NotDetected); Phencyclidine (PCP) Not Detected (NotDetected); THC/Cannabinoid Screen Not Detected (NotDetected); Tricyclic Screen Not Detected (NotDetected)
[2018-11-11 16:40] VITALS: BMI 24.5
[2018-11-11 19:34] LABS: Troponin I Less than 0.010 ng/mL (< 0.028)
[2018-11-11] MEDS: busPIRone HCl 5 MG TAB PO SCH (19:55)
--- NOTE | 2018-11-11 22:09 | ULT ---
BILATERAL CAROTID DUPLEX ULTRASOUND: HISTORY: Dizziness TECHNIQUE: Grayscale, color-flow and spectral Doppler ultrasound imaging of the extracranial carotid artery syst ems was performed bilaterally. FINDINGS: No significant atherosclerotic plaque or intimal thickness is seen in the carotid arteries bilaterall y. Greatest degree of intimal thickening is present in the proximal left common carotid artery measuring 0.06 cm. There is no hemodynamically significant stenosis in the bilateral internal carotid arteries according to the peak systolic velocities and the ICA/CCA ratios. The peak systolic velocity in the right ICA measures 50.9 cm/s. The peak systolic velocity in the left ICA measures 78.6 cm/s. The right IC A/CCA ratio is 0.78, and the left ICA/CCA ratio is 1.01. Vertebral arteries: Antegrade flow is demonstrated in the vertebral arteries bilaterally. IMPRESSION: No hemodynamically significant stenosis in the bilateral internal carotid arteries.
[2018-11-12 01:07] LABS: Troponin I Less than 0.010 ng/mL (< 0.028)
--- NOTE | 2018-11-12 01:25 | HP ---
CHIEF COMPLAINT: Dizziness. HISTORY OF PRESENT ILLNESS: Ms. Nicole is a 63-year-old Afro-I[place]ic female with past medical history of hypertension and anxiety disorder, came because of the dizziness. Her dizziness started about a week ago, getting worse every day. The patient was seen in the ER 2 times and this is the third time. She feels like fainting because the dizziness was so bad. Did not have any chest pain. She has some nausea. No vomiting. No shortness of breath. The patient was given meclizine in the ER, but it did not help and in fact it made it worse. The patient also states she has loss of appetite, not eating well for the last 1 week. She also quit smoking two weeks ago. The patient came to ER third time, where she was evaluated and was found to have normal vital signs and EKG. CT scan of the brain was unremarkable. So, the patient is being admitted for further evaluation and management in ER for persistent dizziness. PAST MEDICAL HISTORY: 1. Hypertension. 2. Anxiety disorder. PAST SURGICAL HISTORY: 1. Status post hysterectomy. 2. Status post appendectomy. 3. Status post lumpectomy in breast. CURRENT MEDICATIONS: The patient is on, 1. Amlodipine 10 mg daily. 2. Hydrochlorothiazide 12.5 mg daily. 3. BuSpar 10 mg b.i.d. 4. The patient is off Xanax for about two weeks because she lost her medication. ALLERGIES: HYDROCORTISONE AND HYDROCODONE. FAMILY HISTORY: Positive for diabetes and hypertension. SOCIAL HISTORY: The patient lives alone. Used to smoke one pack a day for many years and quit smoking two weeks ago. Drinks socially. REVIEW OF SYSTEMS: CARDIOVASCULAR: No chest pain. No shortness of breath. RESPIRATORY: No fever or cough. GASTROINTESTINAL: Has nausea, no vomiting. CENTRAL NERVOUS SYSTEM: No headache but feels dizzy. PHYSICAL EXAMINATION: GENERAL: The patient is alert, awake, oriented x3. VITAL SIGNS: Temperature 98, pulse 67, respirations 20, and blood pressure 159/80. HEENT: Head is normocephalic and atraumatic. Pupils are equal and reacting to light. Nasopharynx is pale and dry. NECK: Supple. No JVD. LUNGS: Bilateral air entry present. No rales, no rhonchi. HEART: S1 and S2. Regular. ABDOMEN: Soft. No distention. No tenderness. Normal bowel sounds. RECTAL: Deferred. CENTRAL NERVOUS SYSTEM: No focal neurological deficit. LABORATORY DATA: CBC shows WBC 5, hemoglobin 15, hematocrit 49, and platelets 270. Metabolic panel; sodium 140, potassium 3.9, chloride 104, CO2 of 27, urea nitrogen 11, creatinine 0.6, and glucose 87. Urinalysis negative. Urine drug screen negative. IMAGING DATA: CT of the brain unremarkable. EKG shows normal sinus rhythm, no acute ST-T changes seen. ASSESSMENT: 1. Severe dizziness and near syncope. Rule out cardiac arrhythmia. Rule out myocardial infarction. 2. Hypertension. 3. Anxiety disorder. PLAN: 1. Vital signs q.4 hours. Activity as tolerated. 2. Hep-Lock. 3. Diet, cardiac. 4. Allergies; hydrocodone and hydrocortisone. 5. Continue home medications. 6. Troponin I q.6 hours x2. 7. Carotid Doppler study. 8. Echocardiogram. 9. Cardiology consult. Job ID: [id number]
[2018-11-12] MEDS: Amlodipine 10 MG TAB PO SCH (08:30)
[2018-11-12] MEDS: Hydrochlorothiazide 25 MG TAB PO SCH (08:31)
[2018-11-12] MEDS: busPIRone HCl 5 MG TAB PO SCH (08:31)
--- NOTE | 2018-11-12 15:56 | CON ---
DATE OF CONSULTATION: 11/12/2018 REASON FOR CONSULTATION: Dizziness. HISTORY OF PRESENT ILLNESS: Ms. Nicole is a pleasant 63-year-old female, who comes to the hospital for dizziness. She has had this for a week and it has been getting progressively worse. Cardiology is being consulted to make sure this is not cardiac in nature. On my evaluation, Ms. Nicole is currently slightly dizzy, it is the same sensation she has been having, her dizziness gets worse when she stands up and when she moves around. She has been somewhat nauseated, but has not thrown up. She has been monitored on telemetry and she has been in sinus rhythm throughout. I just saw her echocardiogram and it was unremarkable as well. She denies any chest pain, tightness, or pressure. No shortness of breath. PAST MEDICAL HISTORY: 1. Hypertension. 2. Anxiety disorder. PAST SURGICAL HISTORY: 1. Hysterectomy. 2. Appendectomy. 3. Breast lumpectomy. OUTPATIENT MEDICATIONS: 1. Amlodipine 10 mg a day. 2. Hydrochlorothiazide 12.5 mg a day. 3. BuSpar 10 mg b.i.d. 4. She has not used her Xanax for two weeks as she lost her medications. ALLERGIES: HYDROCORTISONE AND HYDROCODONE. FAMILY HISTORY: No early coronary artery disease. SOCIAL HISTORY: Former smoker of a pack a day, but quit smoking 2 weeks ago. Social alcohol use. No drug use. REVIEW OF SYSTEMS: 12-point review of systems was done and was all negative unless stated in history of present illness. PHYSICAL EXAMINATION: VITAL SIGNS: Temperature 98.2, pulse 74, respiratory rate 16, saturations 99% on room air, and blood pressure 140/77. GENERAL: Awake, alert, and oriented x3. No distress. HEENT: Normocephalic and atraumatic. NECK: Supple. LUNGS: Clear. CARDIOVASCULAR: S1 and S2. No S3 or S4. No murmurs or rubs. ABDOMEN: Soft. Positive bowel sounds. EXTREMITIES: No edema. SKIN: Warm and dry. LABORATORY DATA: Laboratory work was reviewed. CBC is unremarkable. Chemistries are unremarkable. Troponins are negative x3. UA was negative. Toxicology was undetectable. Echocardiogram was reviewed. She has normal LV function. Normal valvular function. CT of the brain was reviewed. Carotid Doppler was unremarkable. ASSESSMENT: Dizziness. Concern for vertigo. PLAN: No tachy or patricia arrhythmias seen on telemetry monitoring, at the time of her dizziness, she is constantly dizzy. This is unlikely to be cardiac in nature. No signs or symptoms of ischemia at this time. I would probably think this is more related to an inner ear problem. May need a brain MRI given the history of tobacco use and this dizziness, which may be central. Thank you for letting us to participate in the care of your patient. We will sign off. Please call with any questions. Job ID: [id number]
--- NOTE | 2018-11-12 17:58 | MRI ---
EXAM: MRI Brain WO Con PROVIDED CLINICAL HISTORY: Severe dizziness for one to 2 weeks. COMPARISON: None FINDINGS: Scattered punctate signal abnormalities are seen in the periventricular and subcortical white matter which are nonspecific but likely reflective of mild chronic small vessel ischemic changes. There is no evidence of an acute infarction. The septum pellucidum and third ventricle are on the midline. The ventricular system is normal in siz e, shape, and position. Appropriate flow voids are demonstrated at the base of the brain. Polypoid mucosal thickening is seen in the right maxillary antrum with minimal mucosal thickening in the left maxillary antrum. The orbits and skull base have a normal MRI appearance. IMPRESSION: 1. No acute intracranial abnormalities demonstrated. 2. Mild chronic small vessel ischemic changes.
[2018-11-12] MEDS ORDERED: Bisacodyl 5 MG TAB PO PRN (20:00)
[2018-11-12] MEDS ORDERED: Calcium Carbonate 500 MG ChewTAB PO PRN (20:13)
[2018-11-12] MEDS ORDERED: Acetaminophen 325 MG TAB PO PRN (20:13)
[2018-11-12] MEDS ORDERED: Ondansetron PF 4 MG/2 ML Vial IVP PRN (20:14)
[2018-11-12] MEDS: ALPRAZolam 0.5 MG TAB PO SCH (20:51)
[2018-11-13] MEDS: ALPRAZolam 0.5 MG TAB PO SCH ×2 (08:23→20:53)
[2018-11-13] MEDS: Hydrochlorothiazide 25 MG TAB PO SCH (08:24)
[2018-11-13] MEDS: Amlodipine 10 MG TAB PO SCH (08:24)
[2018-11-13] MEDS ORDERED: Bisacodyl 5 MG TAB PO PRN (11:58)
[2018-11-13] MEDS ORDERED: Bisacodyl 5 MG TAB PO SCH (12:00)
[2018-11-13] MEDS ORDERED: Magnesium Citrate 300 ML BOT PO SCH (18:30)
[2018-11-13] MEDS ORDERED: Dexamethasone 4 mg/ml Vial SLOW IVP SCH (18:30)
--- NOTE | 2018-11-14 00:23 | CON ---
DATE OF CONSULTATION: SUBJECTIVE: Ms. Nicole was admitted through the ER for profound dizziness. She has had subsequent MRI, CT scans, carotid ultrasound, all negative. Describes the dizziness is "just dizzy in the head" and very vague on whether or not room is spinning or not. Denies any kind of hearing loss or ringing in the ears. She does not know when her last hearing test was. Denies any kind of sickness prior to onset of dizziness. Also denies any kind of fevers. History of hypertension, but is well controlled currently. No history of diabetes or other chronic illnesses. OBJECTIVE: The patient is well developed, well nourished. She is in no acute distress at this time. She is sitting up comfortably. Her vital signs are currently stable. Nasal exam normal. The Alvaro-Hallpike was performed and negative bilaterally. No abnormalities in ears observed. ASSESSMENT: 1. Dizziness, unspecified. 2. Possible labyrinthitis. PLAN: 1. Recommend ENT followup outside of hospital for hearing screen. 2. If not contraindicated per hospitalist, could do trial of Decadron 12 mg recommended dose to help with possible labyrinthitis. Job ID: [id number]
[2018-11-14 08:13] VITALS: BP 120/76; TEMP 98.1
[2018-11-14] MEDS: Hydrochlorothiazide 25 MG TAB PO SCH (09:13)
[2018-11-14] MEDS: ALPRAZolam 0.5 MG TAB PO SCH (09:15)
[2018-11-14] MEDS: Amlodipine 10 MG TAB PO SCH (09:15)
--- NOTE | 2018-11-17 09:37 | DIS ---
DATE OF ADMISSION: 11/11/2018 DATE OF DISCHARGE: 11/14/2018 ADMITTING DIAGNOSES: 1. Severe dizziness and near syncope rule out cardiac arrhythmia, rule out myocardial infarction. 2. Hypertension. 3. Anxiety disorder. FINAL DIAGNOSES: 1. Severe dizziness and near syncope, improved. 2. No evidence of cardiac arrhythmia. 3. No evidence of acute myocardial infarction. 4. Hypertension. 5. Anxiety disorder. 6. Possible labyrinthitis. BRIEF SUMMARY OF HOSPITAL COURSE: Ms. Nicole is a 63-year-old female admitted with severe dizziness. The patient made 3 to 4 trips to the ER for these complaints, so she was admitted for further evaluation and management. After admission to the hospital, the patient continued to have dizziness. Consultation was done with Cardiology in the ER for dizziness. The patient was seen by Dr. aMyo. He felt that the patient does not have any cardiac arrhythmia or any cardiac reason for her dizziness. Neurology consult was done and they assessed MRI of the brain, which was done and it was unremarkable. Finally, ENT consult was done. ENT felt this could be labyrinthitis, needs to stay on a dose of Decadron, which was given. The patient was also started on her home medications of Xanax for anxiety. After this, her dizziness somewhat improved, so she is being discharged home. At the time of discharge, she was stable. Her vital signs stable. Lungs clear. Abdomen is soft and nontender. Bowel sounds present. DISCHARGE MEDICATIONS: Include: 1. Amlodipine 10 mg daily. 2. Hydrochlorothiazide 12.5 mg daily. 3. BuSpar will be discontinued. 4. She will be started on Xanax 0.25 b.i.d. FOLLOWUP: The patient will come for followup in 2 weeks. Job ID: [id number]
== END 2018-11-14 11:35 | disposition home or self-care (01) ==
LOC: ERS 10:06 → 2SW 16:38
PROVIDERS: ADMIT Internal Medicine; ATTEND Internal Medicine
DX: R42 Dizziness and giddiness (principal); R55 Syncope and collapse; I10 Essential (primary) hypertension; F41.9 Anxiety disorder, unspecified; Z87.891 Personal history of nicotine dependence; Z79.899 Other long term (current) drug therapy; Z88.5 Allergy status to narcotic agent; Z88.8 Allergy status to other drugs, medicaments and biological substances
CPT/HCPCS: 36415; 70450; 70551; 80053; 80306; 81003; 84484; 85025; 93005; 93306; 93880; 96361; 96374; 96375; 96376; G0378; J1100; J2405

== ENCOUNTER 2019-02-16 13:10 | Outpatient (CLI) | payer OTHER ==
--- NOTE | 2019-02-16 13:42 | RAD ---
LEFT KNEE 4 VIEWS: Date: 02/16/19 HISTORY: Pain. COMPARISON: None. FINDINGS: Moderate medial compartment joint space narrowing with large osteophyte formation. No significant kelly nt effusion. No acute fracture or malalignment. Large lateral compartment osteophytes are also presen t. No significant patellofemoral large osteophytes are appreciated. IMPRESSION: Moderate degenerative disease of both the medial and lateral compartments. No acute osseous abnormali ty. POS: CET
== END 2019-02-16 13:11 | disposition home or self-care (01) ==
LOC: RAD-FRANK 13:10
PROVIDERS: ATTEND Internal Medicine
DX: M25.562 Pain in left knee (principal); M17.12 Unilateral primary osteoarthritis, left knee

== ENCOUNTER 2019-02-26 16:18 | Emergency (ER) | payer SELFPAY ==
[2019-02-26 17:10] LABS: #Basophils 0.1 thou/uL (0.0-0.2); #Eosinphils 0.1 thou/uL (0.0-0.7); #Lymphocytes 2.5 thou/uL (1.20-3.40); #Monocytes 0.4 thou/uL (0.11-0.59); #Neutrophils 3.2 thou/uL (1.40-6.50); %Basophils 0.9 % (0.0-1.0); %Eosinophils 2.2 % (0.0-10.0); %Lymphocytes 39.3 % (21.0-51.0); %Monocytes 6.7 % (0.0-10.0); %Neutrophils 50.8 % (42.0-75.0); Hemoglobin 12.6 g/dL (12.0-16.0); Mean Corpuscular Hemoglobin 29.5 pg (27.0-31.0); Mean Corpuscular Volume 89.4 fL (78.0-98.0); Mean Platelet Volume 7.6 fL (7.4-10.4); Platelet Count 231 thou/uL (130-400); RBC Distribution Width 13.9 % (11.5-14.5); Red Blood Cell (RBC) Count 4.27 mill/uL (4.20-5.40); White Blood Cell (WBC) Count 6.3 thou/uL (4.8-10.8)
[2019-02-26 17:29] LABS: ALT (SGPT) 14 U/L (8-55); AST (SGOT) 16 U/L (5-34); Albumin 4.2 g/dL (3.4-4.8); Alkaline Phosphatase 80 U/L (40-150); Anion Gap 9 mmol/L (10-20); BUN (Urea Nitrogen) 14 mg/dL (9.8-20.1); Bilirubin, Total 0.2 mg/dL (0.2-1.2); CK (CPK) 206 U/L (29-168); Calc. Creatinine Clearance 0 mL/min (70-130); Calcium 9.8 mg/dL (7.8-10.44); Carbon Dioxide 30 mmol/L (23-31); Chloride 100 mmol/L (98-107); Estimated GFR-MDRD Greater than 90; Globulin 2.9 g/dL (2.4-3.5); Glucose 83 mg/dL (80-115); Potassium 3.3 mmol/L (3.5-5.1); Protein, Total 7.1 g/dL (6.0-8.3); Sodium 136 mmol/L (136-145)
--- NOTE | 2019-02-26 19:07 | RAD ---
EXAM: Single view of the chest HISTORY: Heart racing COMPARISON: 03/30/2017 FINDINGS: Single view of the chest shows a normal sized cardiomediastinal silhouette. There is no sacha dence of consolidation, mass, or pleural effusion. The bones are unremarkable. IMPRESSION: No evidence of acute cardiopulmonary disease
[2019-02-26] MEDS ORDERED: Potassium Chloride 20 MEQ TAB ONE (19:58)
== END 2019-02-26 20:31 | disposition home or self-care (01) ==
LOC: ERS 16:18
DX: R00.2 Palpitations (principal); I10 Essential (primary) hypertension; F41.9 Anxiety disorder, unspecified; F32.9 Major depressive disorder, single episode, unspecified; F17.210 Nicotine dependence, cigarettes, uncomplicated; Z79.899 Other long term (current) drug therapy
CPT/HCPCS: 36415; 71045; 80053; 82550; 84484; 85025; 93005

== ENCOUNTER 2019-10-17 21:24 | Emergency (ER) | payer MEDICARE, MEDICAID ==
[2019-10-17 22:10] LABS: #Basophils 0.1 thou/uL (0.0-0.2); #Eosinphils 0.1 thou/uL (0.0-0.7); #Lymphocytes 2.8 thou/uL (1.20-3.40); #Monocytes 0.5 thou/uL (0.11-0.59); #Neutrophils 3.4 thou/uL (1.40-6.50); %Basophils 0.7 % (0.0-1.0); %Eosinophils 2.1 % (0.0-10.0); %Lymphocytes 40.9 % (21.0-51.0); %Monocytes 7.3 % (0.0-10.0); Hemoglobin 13.2 g/dL (12.0-16.0); Mean Corpuscular HGB CONC 31.4 g/dL (32.0-36.0); Mean Corpuscular Hemoglobin 28.6 pg (27.0-31.0); Mean Corpuscular Volume 91.3 fL (78.0-98.0); Mean Platelet Volume 7.9 fL (7.4-10.4); Platelet Count 189 thou/uL (130-400); Red Blood Cell (RBC) Count 4.62 mill/uL (4.20-5.40); White Blood Cell (WBC) Count 6.9 thou/uL (4.8-10.8)
[2019-10-17 22:15] LABS: Bacteria/HPF None Seen HPF (None Seen); Bilirubin Negative (Negative); Blood, Urine 1+ (Negative); Clarity Clear (Clear); Glucose, Urine (Dipstick) Normal (Negative); Leukocyte Negative Leu/uL (Negative); Nitrite Negative (Negative); Protein, Urine (Dipstick) Negative (Neg-Trace); RBC/HPF 0-3 HPF (0-3); Squamous Epithelial 0-3 HPF (0-3); Urobilinogen Normal mg/dL (Less than 2); WBC/HPF 0-3 HPF (0-3)
[2019-10-17 22:32] LABS: ALT (SGPT) 17 U/L (8-55); AST (SGOT) 17 U/L (5-34); Albumin 4.2 g/dL (3.4-4.8); Alkaline Phosphatase 93 U/L (40-110); Anion Gap 17 mmol/L (10-20); BUN (Urea Nitrogen) 17 mg/dL (9.8-20.1); Bilirubin, Total Less than 0.2 mg/dL (0.2-1.2); Calc. Creatinine Clearance 0 mL/min (70-130); Calcium 9.2 mg/dL (7.8-10.44); Carbon Dioxide 22 mmol/L (23-31); Chloride 101 mmol/L (98-107); Estimated GFR-MDRD Greater than 90; Globulin 3.1 g/dL (2.4-3.5); Glucose 93 mg/dL (80-115); Potassium 3.5 mmol/L (3.5-5.1); Protein, Total 7.3 g/dL (6.0-8.3); Sodium 136 mmol/L (136-145)
== END 2019-10-18 00:11 | disposition home or self-care (01) ==
LOC: ERS 21:24
DX: N39.0 Urinary tract infection, site not specified (principal); I10 Essential (primary) hypertension; F41.9 Anxiety disorder, unspecified; F32.9 Major depressive disorder, single episode, unspecified; F17.210 Nicotine dependence, cigarettes, uncomplicated; Z79.899 Other long term (current) drug therapy
CPT/HCPCS: 36415; 80053; 81003; 81015; 85025; 99283

== ENCOUNTER 2020-06-16 14:12 | Observation (INO) | payer MEDICARE, MEDICAID ==
[2020-06-16 14:50] LABS: #Basophils 0.1 thou/uL (0.0-0.2); #Eosinphils 0.1 thou/uL (0.0-0.7); #Lymphocytes 1.9 thou/uL (1.20-3.40); #Monocytes 0.5 thou/uL (0.11-0.59); #Neutrophils 2.1 thou/uL (1.40-6.50); %Basophils 1.3 % (0.0-1.0); %Eosinophils 2.8 % (0.0-10.0); %Lymphocytes 40.9 % (21.0-51.0); %Monocytes 9.9 % (0.0-10.0); %Neutrophils 45.1 % (42.0-75.0); Hemoglobin 13.2 g/dL (12.0-16.0); Mean Corpuscular HGB CONC 32.5 g/dL (32.0-36.0); Mean Corpuscular Hemoglobin 29.1 pg (27.0-31.0); Mean Corpuscular Volume 89.6 fL (78.0-98.0); Mean Platelet Volume 7.5 fL (7.4-10.4); Platelet Count 221 thou/uL (130-400); RBC Distribution Width 13.9 % (11.5-14.5); Red Blood Cell (RBC) Count 4.53 mill/uL (4.20-5.40); White Blood Cell (WBC) Count 4.7 thou/uL (4.8-10.8)
--- NOTE | 2020-06-16 15:09 | RAD ---
XR Chest 1 View Portable HISTORY: Chest pain COMPARISON: 01/19/2020 FINDINGS: The heart size is normal. The aorta is tortuous. The lungs are well expanded without focal areas of consolidation, pneumothorax or pleural effusions. IMPRESSION: No radiographic evidence of acute cardiopulmonary process.
[2020-06-16] MEDS ORDERED: Fentanyl 100 MCG/2 ML VIAL ONE (15:13)
[2020-06-16 15:18] LABS: ALT (SGPT) 22 U/L (8-55); AST (SGOT) 19 U/L (5-34); Albumin 4.1 g/dL (3.4-4.8); Alkaline Phosphatase 88 U/L (40-110); Anion Gap 13 mmol/L (10-20); BUN (Urea Nitrogen) 11 mg/dL (9.8-20.1); Bilirubin, Total 0.2 mg/dL (0.2-1.2); CK (CPK) 110 U/L (29-168); Calc. Creatinine Clearance 0 mL/min (70-130); Calcium 10.1 mg/dL (7.8-10.44); Carbon Dioxide 31 mmol/L (23-31); Chloride 101 mmol/L (98-107); Globulin 3.3 g/dL (2.4-3.5); Glucose 108 mg/dL (80-115); Lipase 33 U/L (8-78); Potassium 3.7 mmol/L (3.5-5.1); Protein, Total 7.4 g/dL (6.0-8.3); Sodium 141 mmol/L (136-145)
[2020-06-16] MEDS ORDERED: Ondansetron PF 4 MG/2 ML Vial ONE (16:17)
[2020-06-16 18:09] LABS: Troponin I Less than 0.010 ng/mL (< 0.028)
[2020-06-16 19:36] VITALS: BMI 28.2
[2020-06-16] MEDS ORDERED: Metoprolol Tartrate 5 MG/5 ML VIAL IVP PRN (19:36)
[2020-06-16] MEDS ORDERED: Cholecalciferol 1,000 UNITS (25 MCG) TAB PO SCH (19:45)
--- NOTE | 2020-06-16 20:41 | HP ---
REASON FOR ADMISSION: Chest pain. HISTORY OF PRESENT ILLNESS: This is a 65-year-old female patient, who presents to the ER reporting chest pain history going back to the day of her presentation she woke up from sleep. After standing up, she started having pain that was localized in her back radiating to her chest in the retrosternal area, described as achiness. She did use heat packs to her back, which relieved her pain, but she continued to have pain in her chest that is increased with taking a deep breath, also increased with change in position such as turning to the left or the right or leaning forward. She denies being short of breath. Denies palpitations. Denies vomiting. She did have some nausea, but this quickly resolved. I did review her records. The patient was admitted to our hospital approximately 7 months ago and also 5 months ago with a near syncopal episode. At that time, she was seen by Cardiology. Her symptomatology was deemed to be secondary to her anxiety and not cardiac related, I have asked her if she ever had a stress test done and she described something that sounded like a nuclear stress test, but I did look into our records, I did not see evidence of her undergoing this test here, although she said that she underwent this procedure in this hospital. PAST MEDICAL HISTORY: 1. Anxiety. 2. Depression. 3. High blood pressure. 4. High cholesterol. SOCIAL HISTORY: She continues to smoke, trying to quit. FAMILY HISTORY: Reviewed, found to be noncontributory. REVIEW OF SYSTEMS: All systems reviewed and except the above mentioned, found to be negative. PHYSICAL EXAMINATION: GENERAL: Awake, alert, oriented, does not appear in distress. VITAL SIGNS: Her blood pressure is 128/93, heart rate of 78, and saturating 96% on room air. HEENT: Head is nontraumatic, normocephalic. Pupils are equal, reactive. Extraocular movements are intact. Nonicteric sclerae. Well-injected conjunctivae. Oral mucosa normal. Nasal mucosa normal. NECK: Supple. No adenopathy. No murmur. Thyroid is not palpable. Trachea is midline. No supraclavicular lymphadenopathy. HEART: S1, S2. Regular. Faint systolic murmur heard. LUNGS: Clear to auscultation. Slight inspiratory crackles at both bases. ABDOMEN: Bowel sounds are positive. Nontender abdomen. No hepatosplenomegaly. EXTREMITIES: No lower extremity edema. No cyanosis. NEURO: Cranial nerves 2 through 12 within normal limits. Normal motor function. Normal sensory function, reflexes. LABORATORY DATA: Blood work shows WBC 4.7, hemoglobin 13.2, platelets of 221. D-dimer 0.32. Sodium 141, potassium 3.7, bicarb 31, creatinine 0.79. A chest x-ray shows no acute pulmonary disease. EKG shows no ST-segment or T-wave changes, normal sinus rhythm. ASSESSMENT AND PLAN: This is a 65-year-old female patient, presenting with an atypical chest pain. The patient will be admitted to telemetry. We will continue cycling cardiac enzymes, I do believe that her pain is pleuritic in nature and we will use IV Toradol to control it. We will make sure that she has a good blood pressure control. We will resume her home medication when the med rec is done. Further management as per her clinical progression. Job ID: [id number]
[2020-06-16 20:54] LABS: Troponin I Less than 0.010 ng/mL (< 0.028)
[2020-06-16] MEDS ORDERED: Atorvastatin Calcium 10 MG TAB PO SCH (21:00)
[2020-06-16] MEDS ORDERED: ALPRAZolam 0.5 MG TAB PO SCH (21:45)
[2020-06-17] MEDS: Ketorolac Tromethamine 30 MG/ML VIAL IVP PRN ×2 (02:09→10:06)
[2020-06-17 04:55] LABS: Anion Gap 10 mmol/L (10-20); BUN (Urea Nitrogen) 9 mg/dL (9.8-20.1); Calc. Creatinine Clearance 89 mL/min (70-130); Calcium 9.3 mg/dL (7.8-10.44); Carbon Dioxide 33 mmol/L (23-31); Chloride 99 mmol/L (98-107); Glucose 90 mg/dL (80-115); Potassium 3.9 mmol/L (3.5-5.1); Sodium 138 mmol/L (136-145)
[2020-06-17 08:20] LABS: SARS-CoV-2 MS2 Positive; SARS-CoV-2 N Gene Negative; SARS-CoV-2 S Gene Negative; SARS-CoV-2 by NAA Not Detected (NotDetected); SARS-CoV-2 orf1ab Negative
[2020-06-17] MEDS ORDERED: Amlodipine 10 MG TAB PO SCH (09:00)
[2020-06-17] MEDS ORDERED: Atorvastatin Calcium 10 MG TAB PO SCH (09:00)
[2020-06-17] MEDS ORDERED: ALPRAZolam 0.5 MG TAB PO SCH ×2 (09:00)
[2020-06-17] MEDS ORDERED: Hydrochlorothiazide 25 MG TAB PO SCH (09:00)
[2020-06-17 12:33] VITALS: BP 129/82; TEMP 98.5
--- NOTE | 2020-06-17 17:35 | DIS ---
DATE OF ADMISSION: 06/16/2020 DATE OF DISCHARGE: 06/17/2020 DISCHARGE DISPOSITION: To home. PRIMARY DISCHARGE DIAGNOSIS: Chest pain, which is noncardiac. SECONDARY DISCHARGE DIAGNOSES: 1. Hypertension. 2. Anxiety disorder. 3. Tobacco use. 4. Dyslipidemia. PROCEDURES DONE DURING HOSPITALIZATION: Chest x-ray done showed no acute cardiopulmonary process. H and H 13 and 40, platelet count 221. White count of 4.7 with 45% neutrophils. D-dimer 0.32. BUN 9, creatinine 0.6. Troponin x3 negative. Lipase 33. COVID-19 PCR was not detected. DISCHARGE MEDICATIONS: 1. Hydrochlorothiazide 12.5 mg p.o. daily. 2. Lipitor 10 mg p.o. at bedtime. 3. Norvasc 10 mg p.o. daily. 4. Vitamin D3 once weekly. 5. Alprazolam 0.5 mg p.o. twice daily. ALLERGIES: TO CIPROFLOXACIN, HYDROCODONE, AND HYDROCORTISONE. DISCHARGE PLAN: The patient to follow up with her primary care physician in 1 week. BRIEF COURSE DURING HOSPITALIZATION: The patient initially came in with complaints of chest pain, which was worse on deep breathing and positional change with no radiation as such. In view of this history, patient was placed under observation on telemetry. Three sets of troponin were negative. Chest x-ray did not reveal any acute infiltrate. The patient had normal labs. COVID-19 PCR was negative as well. She remained hemodynamically stable and will be shortly discharged home. Ms. Nicole has been advised to follow up with her primary care physician at the earliest. Please note, I have seen and examined the patient on the day of discharge. Job ID: [id number]
== END 2020-06-17 14:18 | disposition home or self-care (01) ==
LOC: ERS 14:12 → 2NO 16:12
PROVIDERS: ADMIT Internal Medicine; ATTEND Internal Medicine
DX: R07.89 Other chest pain (principal); I10 Essential (primary) hypertension; F41.9 Anxiety disorder, unspecified; F32.9 Major depressive disorder, single episode, unspecified; E78.5 Hyperlipidemia, unspecified; E78.00 Pure hypercholesterolemia, unspecified; F17.210 Nicotine dependence, cigarettes, uncomplicated; Z79.899 Other long term (current) drug therapy; Z88.1 Allergy status to other antibiotic agents; Z88.5 Allergy status to narcotic agent; Z20.822 Contact with and (suspected) exposure to COVID-19
CPT/HCPCS: 71045; 80048; 80053; 82550; 83690; 83735; 84484 ×2; 85025; 85379; 93005; 96374; 96376; 99285; U0003; 36415; 87635; 96375; G0378; J1885; J2405; J3010

== ENCOUNTER 2020-10-10 20:03 | Emergency (ER) | payer MEDICARE, MEDICAID ==
[2020-10-10 20:44] LABS: #Basophils 0.1 thou/uL (0.0-0.2); #Eosinphils 0.2 thou/uL (0.0-0.7); #Monocytes 0.5 thou/uL (0.11-0.59); #Neutrophils 2.9 thou/uL (1.40-6.50); %Eosinophils 2.8 % (0.0-10.0); %Lymphocytes 44.7 % (21.0-51.0); %Monocytes 7.4 % (0.0-10.0); %Neutrophils 44.1 % (42.0-75.0); Hemoglobin 12.6 g/dL (12.0-16.0); Mean Corpuscular HGB CONC 32.3 g/dL (32.0-36.0); Mean Corpuscular Hemoglobin 28.9 pg (27.0-31.0); Mean Corpuscular Volume 89.6 fL (78.0-98.0); Mean Platelet Volume 7.9 fL (7.4-10.4); Platelet Count 195 thou/uL (130-400); RBC Distribution Width 14.3 % (11.5-14.5); Red Blood Cell (RBC) Count 4.36 mill/uL (4.20-5.40); White Blood Cell (WBC) Count 6.6 thou/uL (4.8-10.8)
[2020-10-10] MEDS ORDERED: Ondansetron PF 4 MG/2 ML Vial ONE (20:55)
[2020-10-10] MEDS ORDERED: Aspirin Chewable 81 MG TAB ONE ×2 (20:55→21:03)
[2020-10-10 21:03] LABS: Bilirubin Negative (Negative); Blood, Urine Negative (Negative); Clarity Clear (Clear); Glucose, Urine (Dipstick) Normal (Negative); Ketone, Urine Negative (Negative); Leukocyte Negative Leu/uL (Negative); Nitrite Negative (Negative); Protein, Urine (Dipstick) Negative (Neg-Trace); Specific Gravity, Urine 1.003 (1.002-1.036); Urobilinogen Normal mg/dL (Less than 2)
[2020-10-10 21:05] LABS: ALT (SGPT) 29 U/L (8-55); AST (SGOT) 22 U/L (5-34); Albumin 4.1 g/dL (3.4-4.8); Alkaline Phosphatase 104 U/L (40-110); Anion Gap 18 mmol/L (10-20); BUN (Urea Nitrogen) 11 mg/dL (9.8-20.1); Bilirubin, Total 0.2 mg/dL (0.2-1.2); Calc. Creatinine Clearance 0 mL/min (70-130); Calcium 9.4 mg/dL (7.8-10.44); Carbon Dioxide 22 mmol/L (23-31); Chloride 100 mmol/L (98-107); Globulin 3.4 g/dL (2.4-3.5); Glucose 117 mg/dL (80-115); Lipase 40 U/L (8-78); Potassium 3.5 mmol/L (3.5-5.1); Protein, Total 7.5 g/dL (5.8-8.1); Sodium 136 mmol/L (136-145)
== END 2020-10-10 22:57 | disposition home or self-care (01) ==
LOC: ERS 20:03
DX: R07.89 Other chest pain (principal); E78.5 Hyperlipidemia, unspecified; E78.00 Pure hypercholesterolemia, unspecified; I10 Essential (primary) hypertension; F17.210 Nicotine dependence, cigarettes, uncomplicated; Z79.899 Other long term (current) drug therapy
CPT/HCPCS: 36415; 71045; 80053; 81003; 83690; 83880; 84484; 85025; 93005; 96374; J2405

== ENCOUNTER 2020-11-23 20:27 | Emergency (ER) | payer MEDICARE, MEDICAID | END 2020-11-23 20:53 | disposition left against medical advice (07) | LOC: ERS 20:27 | DX: Z53.21 Procedure and treatment not carried out due to patient leaving prior to being seen by health care provider (principal) ==

== ENCOUNTER 2021-02-19 00:23 | Emergency (ER) | payer MEDICARE, MEDICAID ==
[2021-02-19 01:00] LABS: Bilirubin Negative (Negative); Blood, Urine Trace (Negative); Clarity Clear (Clear); Glucose, Urine (Dipstick) Normal (Negative); Ketone, Urine Negative (Negative); Leukocyte Negative Leu/uL (Negative); Nitrite Negative (Negative); Protein, Urine (Dipstick) Negative (Neg-Trace); RBC/HPF 0-3 HPF (0-3); Specific Gravity, Urine 1.003 (1.002-1.036); Squamous Epithelial 0-3 HPF (0-3); Urobilinogen Normal mg/dL (Less than 2); WBC/HPF 0-3 HPF (0-3)
[2021-02-19 01:08] LABS: Bacteria/HPF Rare-Few HPF (None Seen)
[2021-02-19 01:25] LABS: #Basophils 0.1 thou/uL (0.0-0.2); #Eosinphils 0.2 thou/uL (0.0-0.7); #Lymphocytes 2.7 thou/uL (1.20-3.40); #Monocytes 0.5 thou/uL (0.11-0.59); %Basophils 0.7 % (0.0-1.0); %Eosinophils 2.1 % (0.0-10.0); %Monocytes 6.4 % (0.0-10.0); %Neutrophils 54.8 % (42.0-75.0); Hemoglobin 13.8 g/dL (12.0-16.0); Mean Corpuscular HGB CONC 33.4 g/dL (32.0-36.0); Mean Corpuscular Hemoglobin 30.2 pg (27.0-31.0); Mean Corpuscular Volume 90.3 fL (78.0-98.0); Mean Platelet Volume 7.6 fL (7.4-10.4); Platelet Count 188 thou/uL (130-400); RBC Distribution Width 14.1 % (11.5-14.5); Red Blood Cell (RBC) Count 4.56 mill/uL (4.20-5.40); White Blood Cell (WBC) Count 7.4 thou/uL (4.8-10.8)
[2021-02-19 01:34] LABS: INR-International Normal Ratio 0.9; PTT 28.2 sec (22.9-36.1); Prothrombin Time 12.1 sec (12.0-14.7)
[2021-02-19 01:46] LABS: ALT (SGPT) 20 U/L (8-55); AST (SGOT) 17 U/L (5-34); Albumin 4.3 g/dL (3.4-4.8); Alkaline Phosphatase 101 U/L (40-110); Anion Gap 13 mmol/L (10-20); BUN (Urea Nitrogen) 11 mg/dL (9.8-20.1); Bilirubin, Total 0.2 mg/dL (0.2-1.2); Calc. Creatinine Clearance 0 mL/min (70-130); Calcium 9.5 mg/dL (7.8-10.44); Carbon Dioxide 27 mmol/L (23-31); Chloride 103 mmol/L (98-107); Globulin 3.2 g/dL (2.4-3.5); Glucose 100 mg/dL (80-115); Potassium 4.2 mmol/L (3.5-5.1); Protein, Total 7.5 g/dL (5.8-8.1); Sodium 139 mmol/L (136-145)
== END 2021-02-19 03:50 | disposition home or self-care (01) ==
LOC: ERS 00:23
DX: R31.9 Hematuria, unspecified (principal); E78.5 Hyperlipidemia, unspecified; I10 Essential (primary) hypertension; F17.210 Nicotine dependence, cigarettes, uncomplicated; Z79.899 Other long term (current) drug therapy
CPT/HCPCS: 36415; 80053; 81003; 81015; 85025; 85610; 85730; 86850; 86900; 86901; 99284

== ENCOUNTER 2021-09-12 10:42 | Outpatient (CLI) | payer MEDICARE, MEDICAID | END 2021-09-12 10:43 | disposition home or self-care (01) | LOC: BICMAMMO 10:42 | PROVIDERS: ATTEND Nurse Practitioner Family | DX: Z12.31 Encounter for screening mammogram for malignant neoplasm of breast (principal); Z91.89 Other specified personal risk factors, not elsewhere classified | CPT/HCPCS: 77063; 77067 ==

== ENCOUNTER 2022-09-21 10:06 | Outpatient (CLI) | payer OTHER, MEDICAID | END 2022-09-21 10:07 | disposition home or self-care (01) | LOC: BICMAMMO 10:06 | PROVIDERS: ATTEND Nurse Practitioner Family | DX: Z12.31 Encounter for screening mammogram for malignant neoplasm of breast (principal); Z91.89 Other specified personal risk factors, not elsewhere classified | CPT/HCPCS: 77063; 77067 ==

== ENCOUNTER 2023-02-12 06:34 | Day surgery (SDC) | payer OTHER, MEDICAID ==
[2023-02-08 11:35] VITALS: BMI 23.8
[~2023-02-12 06:34] MED LIST changes: +EPINEPHrine 0.3 MG in Ophthalmic Irrigation Solution 500 ML IRR SCH; -ISOVUE-370 76%-LOCM 1 ML ONE
[2023-02-12] MEDS ORDERED: Midazolam HCl 2 mg/2 ml Vial ONE (06:35)
[2023-02-12] MEDS ORDERED: fentaNYL 50 mcg/mL 1 mL Vial ONE (06:35)
[2023-02-12] MEDS ORDERED: Cyclopentolate W/ Phenylephrin 40 DROP/2 ML BOT ONE (07:10)
[2023-02-12] MEDS ORDERED: CEFAZOLIN 1 GM VIAL ONE (08:59)
[2023-02-12] MEDS ORDERED: Lidocaine 1% PF 5 ML VIAL ONE ×2 (08:59)
[2023-02-12] MEDS ORDERED: Triamcinolone 40 MG/ML VIAL ONE (08:59)
[2023-02-12] MEDS ORDERED: Lidocaine 4% PF 5 ML AMP ONE (08:59)
[2023-02-12] MEDS ORDERED: PROPOFOL 200 MG/20 ML VIAL ONE (08:59)
[2023-02-12] MEDS ORDERED: Maxitrol 0.1% Opth Oint 3.5 GM TUBE ONE (08:59)
[2023-02-12] MEDS ORDERED: Bupivacaine 0.75% 10 ML VIAL ONE (08:59)
[2023-02-12] MEDS ORDERED: Oxymetazoline HCl 0.05% (30 ML BOT) ONE (09:10)
== END 2023-02-12 10:27 | disposition home or self-care (01) ==
LOC: SDC 06:34
PROVIDERS: ATTEND Ophthalmology Retina Specialist
PROC: 08T43ZZ Resection of Right Vitreous, Percutaneous Approach (ICD-10-PCS; principal; 2023-02-12)
PROC: 08QE3ZZ Repair Right Retina, Percutaneous Approach (ICD-10-PCS; 2023-02-12)
DX: H59.021 Cataract (lens) fragments in eye following cataract surgery, right eye (principal)
CPT/HCPCS: 67039; J3010; J0171; J0690; J2250; J2704; J3301; J3490

== ENCOUNTER 2023-05-29 14:35 | Emergency (ER) | payer OTHER, MEDICAID ==
[2023-05-29 16:09] LABS: SARS-CoV-2 NAA Rapid Test Not Detected (NotDetected)
[2023-05-29 16:18] LABS: #Monocytes 0.5 thou/uL (0.11-0.59); #Neutrophils 1.9 thou/uL (1.40-6.50); %Basophils 0.5 % (0.0-1.0); %Eosinophils 0.3 % (0.0-10.0); %Lymphocytes 35.1 % (21.0-51.0); %Monocytes 13.8 % (0.0-10.0); Hematocrit 41.3 % (36.0-47.0); Hemoglobin 13.1 g/dL (12.0-16.0); Mean Corpuscular HGB CONC 31.7 g/dL (32.0-36.0); Mean Corpuscular Hemoglobin 28.5 pg (27.0-31.0); Mean Corpuscular Volume 89.8 fl (78.0-98.0); Mean Platelet Volume 10.8 fL (7.4-10.4); Platelet Count 128 10x3/uL (130-400); RBC Distribution Width 15.4 % (11.5-14.5); White Blood Cell (WBC) Count 3.8 10x3/uL (4.8-10.8)
[2023-05-29 16:29] LABS: ALT (SGPT) 25 U/L (8-55); AST (SGOT) 43 U/L (5-34); Albumin 3.6 g/dL (3.4-4.8); Alkaline Phosphatase 68 U/L (40-110); Anion Gap 12 mmol/L (10-20); BUN (Urea Nitrogen) 18 mg/dL (9.8-20.1); Bilirubin, Total 0.4 mg/dL (0.2-1.2); Calc. Creatinine Clearance 0 mL/min (70-130); Calcium 8.2 mg/dL (7.8-10.44); Carbon Dioxide 26 mmol/L (23-31); Chloride 100 mmol/L (98-107); Estimated GFR 68; Globulin 2.8 g/dL (2.4-3.5); Glucose 90 mg/dL (80-115); Potassium 3.5 mmol/L (3.5-5.1); Protein, Total 6.4 g/dL (5.8-8.1); Sodium 134 mmol/L (136-145)
[2023-05-29 16:32] LABS: Troponin I Less than 0.010 ng/mL (< 0.028)
[2023-05-29 16:36] LABS: Bilirubin Negative (Negative); Blood, Urine Trace (Negative); CAUTI Indications for Culture Fever or rigors; Clarity Clear (Clear); Glucose, Urine (Dipstick) Normal (Negative); Ketone, Urine Negative (Negative); Leukocyte Negative Leu/uL (Negative); Nitrite Negative (Negative); Protein, Urine (Dipstick) 30 mg/dL (Neg-Trace); RBC/HPF 0-3 HPF (0-3); Specific Gravity, Urine 1.018 (1.002-1.036); Squamous Epithelial 0-3 HPF (0-3); pH, Urine 6.5 (5.0-9.0)
[2023-05-29 16:39] LABS: Bacteria/HPF 1+ HPF (None Seen)
[2023-05-29 16:41] LABS: Urine Culture Reflex Yes Yes
== END 2023-05-29 17:26 | disposition home or self-care (01) ==
LOC: ERS 14:35
DX: J10.1 Influenza due to other identified influenza virus with other respiratory manifestations (principal); N39.0 Urinary tract infection, site not specified; E78.00 Pure hypercholesterolemia, unspecified; I10 Essential (primary) hypertension; F17.210 Nicotine dependence, cigarettes, uncomplicated; Z79.899 Other long term (current) drug therapy
CPT/HCPCS: 0240U; 71045; 80053; 81001; 83605; 84484; 85025; 85379; 87040; 87086; 93005; 99284; 36415

== ENCOUNTER 2023-10-31 08:10 | Outpatient (CLI) | payer OTHER, MEDICAID | END 2023-10-31 08:11 | disposition home or self-care (01) | LOC: BICMAMMO 08:10 | PROVIDERS: ATTEND Nurse Practitioner Family | DX: Z13.820 Encounter for screening for osteoporosis (principal); M85.89 Other specified disorders of bone density and structure, multiple sites; Z78.0 Asymptomatic menopausal state | CPT/HCPCS: 77080 ==

== ENCOUNTER 2023-12-10 05:51 | Day surgery (SDC) | payer OTHER, MEDICAID ==
[2023-11-29 13:56] VITALS: BMI 25.6
[2023-12-10] MEDS ORDERED: fentaNYL 50 mcg/mL 1 mL Vial ONE ×2 (08:02→08:51)
[2023-12-10] MEDS ORDERED: Midazolam HCl 2 mg/2 ml Vial ONE (08:03)
[2023-12-10] MEDS ORDERED: PROPOFOL 200 MG/20 ML VIAL ONE (08:35)
[2023-12-10] MEDS ORDERED: Maxitrol 0.1% Opth Oint 3.5 GM TUBE ONE (08:35)
[2023-12-10] MEDS ORDERED: Bupivacaine 0.75% 10 ML VIAL ONE (08:35)
[2023-12-10] MEDS ORDERED: Lidocaine 4% PF 5 ML AMP ONE (08:35)
[2023-12-10] MEDS ORDERED: CEFAZOLIN 1 GM VIAL ONE (08:35)
[2023-12-10] MEDS ORDERED: Lidocaine 1% PF 5 ML VIAL ONE (08:35)
[2023-12-10] MEDS ORDERED: Acetaminophen 325 MG TAB ONE (09:17)
== END 2023-12-10 10:00 | disposition home or self-care (01) ==
LOC: SDC 05:51
PROVIDERS: ATTEND Ophthalmology Retina Specialist
PROC: 08P Eye, Removal (ICD-10-PCS; principal; 2023-12-10)
DX: H59.021 Cataract (lens) fragments in eye following cataract surgery, right eye (principal); Z88.1 Allergy status to other antibiotic agents; Z88.5 Allergy status to narcotic agent; Z88.8 Allergy status to other drugs, medicaments and biological substances; Z91.013 Allergy to seafood
CPT/HCPCS: 65920; J0690; J2250; J2704; J3010; J3490; J0171

== ENCOUNTER 2024-05-26 08:59 | Emergency (ER) | payer OTHER, MEDICAID ==
[2024-05-26 10:43] LABS: PTT 30.2 sec (22.9-36.1); Prothrombin Time 12.6 sec (12.0-14.7)
[2024-05-26 10:59] LABS: ALT (SGPT) 14 U/L (8-55); AST (SGOT) 16 U/L (5-34); Albumin 3.2 g/dL (3.4-4.8); Alkaline Phosphatase 66 U/L (40-110); Anion Gap 12 mmol/L (10-20); BUN (Urea Nitrogen) 9 mg/dL (9.8-20.1); Bilirubin, Total 0.3 mg/dL (0.2-1.2); Calc. Creatinine Clearance 0 mL/min (70-130); Calcium 9.5 mg/dL (7.8-10.44); Carbon Dioxide 28 mmol/L (23-31); Chloride 98 mmol/L (98-107); Estimated GFR 84; Globulin 3.8 g/dL (2.4-3.5); Glucose 94 mg/dL (80-115); Potassium 3.5 mmol/L (3.5-5.1)
[2024-05-26 11:37] LABS: #Basophils Less than 0.03 10x3/uL (0.0-0.2); %Basophils 0.5 % (0.0-1.0); %Eosinophils 3.3 % (0.0-10.0); %Lymphocytes 25.8 % (21.0-51.0); %Monocytes 18.3 % (0.0-10.0); %Neutrophils 51.8 % (42.0-75.0); Band 12 % (5-11); Eosinophils 7 % (0-10); Hemoglobin 12.6 g/dL (12.0-16.0); Lymphocytes 36 % (21-51); Mean Corpuscular HGB CONC 32.3 g/dL (32.0-36.0); Mean Corpuscular Hemoglobin 28.1 pg (27.0-31.0); Mean Corpuscular Volume 87.1 fL (78.0-98.0); Mean Platelet Volume 10.4 fL (7.4-10.4); Monocytes 11 % (0-10); Neutrophil 34 % (42-75); Plasma Cells 0 % (0-0); Platelet Adequacy Comment Appears Adequate; Platelet Count 164 10x3/uL (130-400); Polychromasia SLIGHT = 2-3 cells (100X) (0-2/hpf); RBC Distribution Width 15.5 % (11.5-14.5); Red Blood Cell (RBC) Count 4.48 mill/uL (4.20-5.40); Total Cell Count 100
[2024-05-26 11:49] LABS: Sodium 134 mmol/L (136-145)
[2024-05-26] MEDS ORDERED: Iopamidol-370 76% 500 ML MDV (1 ML CHARGE) ONE (13:49)
== END 2024-05-26 12:44 | disposition home or self-care (01) ==
LOC: ERS 08:59
DX: A09 Infectious gastroenteritis and colitis, unspecified (principal); I10 Essential (primary) hypertension; E78.00 Pure hypercholesterolemia, unspecified; F17.210 Nicotine dependence, cigarettes, uncomplicated; Z79.899 Other long term (current) drug therapy
CPT/HCPCS: 36415; 71045; 74177; 80053; 82274; 85025; 85610; 85730; Q9967

== ENCOUNTER 2024-06-26 10:17 | Emergency (ER) | payer OTHER, MEDICAID ==
[2024-06-26] MEDS ORDERED: diphenhydrAMINE 50 MG/ML VIAL ONE (10:57)
[2024-06-26] MEDS ORDERED: Ondansetron PF 4 MG/2 ML Vial ONE (10:57)
[2024-06-26] MEDS ORDERED: Morphine 4 MG/ML VIAL ONE (10:57)
[2024-06-26] MEDS ORDERED: Famotidine/PF 20 mg/2ml Vial ONE (10:57)
[2024-06-26 11:09] LABS: #Basophils 0.03 10x3/uL (0.0-0.2); %Eosinophils 4.6 % (0.0-10.0); %Lymphocytes 51.3 % (21.0-51.0); %Monocytes 11.6 % (0.0-10.0); %Neutrophils 31.5 % (42.0-75.0); Hematocrit 40.6 % (36.0-47.0); Hemoglobin 13.1 g/dL (12.0-16.0); Mean Corpuscular HGB CONC 32.3 g/dL (32.0-36.0); Mean Corpuscular Volume 86.8 fL (78.0-98.0); Mean Platelet Volume 9.9 fL (7.4-10.4); Platelet Count 190 10x3/uL (130-400); RBC Distribution Width 16.2 % (11.5-14.5); Red Blood Cell (RBC) Count 4.68 mill/uL (4.20-5.40)
[2024-06-26 11:23] LABS: Bacteria/HPF None Seen HPF (None Seen); Bilirubin Negative (Negative); Blood, Urine Negative (Negative); CAUTI Indications for Culture Dysuria,urgency,freq; Clarity Clear (Clear); Glucose, Urine (Dipstick) Normal (Negative); Ketone, Urine Negative (Negative); Leukocyte Negative Leu/uL (Negative); Nitrite Negative (Negative); Protein, Urine (Dipstick) Negative (Neg-Trace); RBC/HPF 0-3 HPF (0-3); Specific Gravity, Urine 1.008 (1.002-1.036); Squamous Epithelial None Seen HPF (0-3); Urobilinogen Normal mg/dL (Less than 2); WBC/HPF None Seen HPF (0-3); pH, Urine 7.5 (5.0-9.0)
[2024-06-26 11:27] LABS: ALT (SGPT) 32 U/L (8-55); AST (SGOT) 25 U/L (5-34); Albumin 3.5 g/dL (3.4-4.8); Alkaline Phosphatase 91 U/L (40-110); Anion Gap 9 mmol/L (10-20); BUN (Urea Nitrogen) 10 mg/dL (9.8-20.1); Bilirubin, Total 0.4 mg/dL (0.2-1.2); Calc. Creatinine Clearance 0 mL/min (70-130); Calcium 9.3 mg/dL (7.8-10.44); Carbon Dioxide 27 mmol/L (23-31); Chloride 105 mmol/L (98-107); Estimated GFR 98; Globulin 3.8 g/dL (2.4-3.5); Glucose 96 mg/dL (80-115); Lipase 20 U/L (8-78); Potassium 3.9 mmol/L (3.5-5.1); Protein, Total 7.3 g/dL (5.8-8.1); Sodium 137 mmol/L (136-145)
[2024-06-26 11:30] LABS: Troponin I Less than 0.010 ng/mL (< 0.028)
[2024-06-26 11:42] LABS: Urine Culture Reflex No No
== END 2024-06-26 13:50 | disposition home or self-care (01) ==
LOC: ERS 10:17
DX: R10.13 Epigastric pain (principal); I10 Essential (primary) hypertension; F17.210 Nicotine dependence, cigarettes, uncomplicated; Z55.6 Problems related to health literacy; Z75.3 Unavailability and inaccessibility of health-care facilities
CPT/HCPCS: 71045; 80053; 81001; 83690; 83880; 84484; 85025; 85379; 87428; 93005; J1200; J2270; J2405; J3490; 36415; 96374; 96375